=== PATIENT | female | born 1945 | race Caucasian/White ===

== ENCOUNTER → 2016-05-29 | Outpatient (CLI) | payer MEDICARE, MEDICAID ==
[~2016-05-29] MED LIST: /ESOM40CA; /WARF25TA; OMEGA 3; PERC5TAB8; TENO25TA; VENL37.5
--- NOTE | 2016-05-29 10:23 | REPMRS ---
Patient History The patient states she had a clinical breast exam in 05/2016. No known family history of cancer. Digital Woman Screen Mammo: May 29, 2016 - Exam #: [id number] Bilateral CC and MLO view(s) were taken. Technologist: Janet Sahu, Technologist Prior study comparison: April 12, 2015, digital woman screen mammo performed at [facility] to [facility]. July 19, 2013, digital woman screen mammo performed at [facility] to [facility]. FINDINGS: There are scattered fibroglandular densities. There has been no change in the appearance of the mammogram from the prior studies. There is a mild amount of residual fibroglandular tissue which is fairly symmetric. There is no interval development of dominant mass, architectural distortion, or clustered microcalcification suggestive of malignancy. ASSESSMENT: BI-RADS/ACR category 1 mammogram. Negative. Recommendation Routine screening mammogram in 1 year (for women over age 40). This mammogram was interpreted with the aid of an FDA-approved computer-aided dectection system. Electronically Signed By: Mendoza Webb MD 05/29/16 [id number]
== END ==
LOC: M WHC 09:08
PROVIDERS: ATTEND Nurse Practitioner Family
DX: Z12.31 Encounter for screening mammogram for malignant neoplasm of breast (principal); Z12.12 Encounter for screening for malignant neoplasm of rectum; Z01.411 Encounter for gynecological examination (general) (routine) with abnormal findings
CPT/HCPCS: 82270; G0101; G0202

== ENCOUNTER → 2016-09-18 | Outpatient (REF) | payer MEDICARE, MEDICAID ==
[2016-09-18 20:02] LABS: MEAN CORPUSCULAR VOLUME 90.9 fl (80.0-96.0); RED CELL DISTRIBUTION WIDTH 12.8 % (11.5-14.5); WHITE BLOOD COUNT 6.2 K/mm3 (4.0-10.0)
[2016-09-18 20:09] LABS: ALBUMIN 3.7 GM/DL (3.2-5.2); ALKALINE PHOSPHATASE 130 U/L (45-117); ALT/SGPT 24 U/L (12-78); ANION GAP 6 MEQ/L (8-16); AST/SGOT 18 U/L (15-37); BILIRUBIN,TOTAL 0.7 MG/DL (0.2-1.0); BLOOD UREA NITROGEN 15 MG/DL (7-18); CALCIUM LEVEL 8.8 MG/DL (8.8-10.2); CARBON DIOXIDE LEVEL 30 MEQ/L (21-32); CHLORIDE LEVEL 106 MEQ/L (98-107); CHOLESTEROL LEVEL 149 MG/DL (<200); CREATININE FOR GFR 0.93 MG/DL (0.55-1.02); FREE T4 0.96 NG/DL (0.76-1.46); GLOMERULAR FILTRATION RATE > 60.0 (>45); GLUCOSE, FASTING 92 MG/DL (80-110); POTASSIUM SERUM 4.1 MEQ/L (3.5-5.1); SODIUM LEVEL 142 MEQ/L (136-145); TOTAL PROTEIN 7.8 GM/DL (6.4-8.2); TRIGLYCERIDES LEVEL 104 MG/DL (<150)
== END ==
LOC: M SFHCADAM 16:38
PROVIDERS: ATTEND Family Medicine
DX: E53.8 Deficiency of other specified B group vitamins (principal); G30.8 Other Alzheimer's disease; E78.5 Hyperlipidemia, unspecified; E55.9 Vitamin D deficiency, unspecified; F02.81 Dementia in other diseases classified elsewhere, unspecified severity, with behavioral disturbance; R10.9 Unspecified abdominal pain; Z66 Do not resuscitate; Z78.9 Other specified health status; Z23 Encounter for immunization
CPT/HCPCS: 80053; 80061; 82306; 84439; 84443; 85027; 90732; 99497; G0009; G0463

== ENCOUNTER → 2017-10-07 | Outpatient (REF) | payer MEDICARE, MEDICAID ==
[2017-10-07 12:37] LABS: HEMATOCRIT 43.7 % (36.0-47.0); HEMOGLOBIN 14.4 g/dl (12.0-15.5); MEAN CORPUSCULAR HEMOGLOBIN 29.4 pg (27.0-33.0); MEAN CORPUSCULAR VOLUME 89.4 fl (80.0-96.0); PLATELET COUNT, AUTOMATED 225 10^3/uL (150-450); RED BLOOD COUNT 4.89 10^6/uL (4.00-5.40)
[2017-10-07 12:55] LABS: ALBUMIN 3.6 GM/DL (3.2-5.2); ALBUMIN/GLOBULIN RATIO 0.84 (1.00-1.93); ALKALINE PHOSPHATASE 137 U/L (45-117); ALT/SGPT 24 U/L (12-78); ANION GAP 8 MEQ/L (8-16); AST/SGOT 19 U/L (7-37); BILIRUBIN,TOTAL 0.7 MG/DL (0.2-1.0); BLOOD UREA NITROGEN 16 MG/DL (7-18); CALCIUM LEVEL 8.7 MG/DL (8.8-10.2); CARBON DIOXIDE LEVEL 29 MEQ/L (21-32); CHLORIDE LEVEL 108 MEQ/L (98-107); CHOLESTEROL LEVEL 148 MG/DL (<200); CHOLESTEROL RISK RATIO 2.312 (<5); GLOMERULAR FILTRATION RATE > 60.0 (>39); GLUCOSE, FASTING 84 MG/DL (70-100); HDL CHOLESTEROL 64 MG/DL (>40); LDL CHOLESTEROL 57.8 MG/DL (<100); NON-HDL-C 84 MG/DL; POTASSIUM SERUM 4.2 MEQ/L (3.5-5.1); SODIUM LEVEL 145 MEQ/L (136-145); TOTAL PROTEIN 7.9 GM/DL (6.4-8.2); TRIGLYCERIDES LEVEL 131 MG/DL (<150)
[2017-10-07 13:26] LABS: TOTAL 25(OH) VITAMIN D 32.7 NG/ML (30.0-100.0)
== END ==
LOC: M SFHCADAM 10:24
DX: R10.84 Generalized abdominal pain (principal); I11.9 Hypertensive heart disease without heart failure; E78.5 Hyperlipidemia, unspecified; E55.9 Vitamin D deficiency, unspecified; Z68.34 Body mass index [BMI] 34.0-34.9, adult
CPT/HCPCS: 80053

== ENCOUNTER → 2018-09-28 | Outpatient (REF) | payer MEDICARE, MEDICAID ==
[~2018-09-28] MED LIST changes: -/ESOM40CA; -/WARF25TA; +ASPI81TA26 PO; +ATOR1TAB21 PO; +COUM1TAB18; +DEPA250T2 PO; +DONETAB6 PO; +MIRT15TA3 PO; +NAME28CA PO; +NEXI1CAP3; +OXYB5TAB10 PO; +QUET5TAB PO; +SERT-155 PO
[2018-09-28 12:42] LABS: HEMATOCRIT 45.5 % (36.0-47.0); HEMOGLOBIN 14.7 g/dl (12.0-15.5); MEAN CORPUSCULAR HEMOGLOBIN 29.9 pg (27.0-33.0); MEAN CORPUSCULAR HGB CONC 32.3 g/dl (32.0-36.5); MEAN CORPUSCULAR VOLUME 92.7 fl (80.0-96.0); PLATELET COUNT, AUTOMATED 222 10^3/uL (150-450); RED BLOOD COUNT 4.91 10^6/uL (4.00-5.40); WHITE BLOOD COUNT 7.4 10^3/uL (4.0-10.0)
[2018-09-28 13:11] LABS: ALBUMIN 3.4 GM/DL (3.2-5.2); ALT/SGPT 21 U/L (12-78); BILIRUBIN,TOTAL 0.6 MG/DL (0.2-1.0); BLOOD UREA NITROGEN 14 MG/DL (7-18); CALCIUM LEVEL 8.5 MG/DL (8.8-10.2); CARBON DIOXIDE LEVEL 26 MEQ/L (21-32); CHLORIDE LEVEL 109 MEQ/L (98-107); CHOLESTEROL LEVEL 141 MG/DL (<200); CHOLESTEROL RISK RATIO 2.517 (<5); CREATININE FOR GFR 0.91 MG/DL (0.55-1.30); GLOMERULAR FILTRATION RATE > 60.0 (>39); GLUCOSE, FASTING 87 MG/DL (70-100); HDL CHOLESTEROL 56 MG/DL (>40); LDL CHOLESTEROL 62 MG/DL (<100); NON-HDL-C 85 MG/DL; SODIUM LEVEL 145 MEQ/L (136-145); TOTAL PROTEIN 7.6 GM/DL (6.4-8.2); TRIGLYCERIDES LEVEL 116 MG/DL (<150)
== END ==
LOC: M SFHCADAM 10:01
PROVIDERS: ATTEND Family Medicine
DX: G30.8 Other Alzheimer's disease (principal); I11.9 Hypertensive heart disease without heart failure; E78.5 Hyperlipidemia, unspecified
CPT/HCPCS: 80053; 80061; 85027; G0463

== ENCOUNTER → 2019-08-25 | Outpatient (REF) | payer MEDICARE, MEDICAID ==
[~2019-08-25] MED LIST changes: -SERT-155 PO; +SERT50TA29 PO
[2019-08-25 09:14] LABS: HEMATOCRIT 40.5 % (36.0-47.0); MEAN CORPUSCULAR HEMOGLOBIN 29.7 pg (27.0-33.0); MEAN CORPUSCULAR HGB CONC 32.1 g/dl (32.0-36.5); MEAN CORPUSCULAR VOLUME 92.7 fl (80.0-96.0); PLATELET COUNT, AUTOMATED 194 10^3/uL (150-450); RED BLOOD COUNT 4.37 10^6/uL (4.00-5.40); WHITE BLOOD COUNT 6.7 10^3/uL (4.0-10.0)
[2019-08-25 09:46] LABS: BLOOD UREA NITROGEN 15 MG/DL (7-18); CALCIUM LEVEL 8.1 MG/DL (8.8-10.2); CARBON DIOXIDE LEVEL 30 MEQ/L (21-32); CHLORIDE LEVEL 108 MEQ/L (98-107); CHOLESTEROL LEVEL 127 MG/DL (<200); CREATININE FOR GFR 0.75 MG/DL (0.55-1.30); GLOMERULAR FILTRATION RATE > 60.0 (>39); GLUCOSE, FASTING 76 MG/DL (70-100); HDL CHOLESTEROL 46 MG/DL (>40); LDL CHOLESTEROL 63 MG/DL (<100); NON-HDL-C 81 MG/DL; POTASSIUM SERUM 3.7 MEQ/L (3.5-5.1); SODIUM LEVEL 145 MEQ/L (136-145); TRIGLYCERIDES LEVEL 92 MG/DL (<150)
[2019-08-25 09:56] LABS: TOTAL 25(OH) VITAMIN D 28.3 NG/ML (30.0-100.0); VITAMIN B12 LEVEL 328 PG/ML (247-911)
== END ==
LOC: SKLAB6 08-22 07:00
PROVIDERS: ATTEND Family Medicine
DX: F03.90 Unspecified dementia, unspecified severity, without behavioral disturbance, psychotic disturbance, mood disturbance, and anxiety (principal); E53.8 Deficiency of other specified B group vitamins; E55.9 Vitamin D deficiency, unspecified; E78.5 Hyperlipidemia, unspecified; Z79.899 Other long term (current) drug therapy

== ENCOUNTER → 2019-11-01 | Outpatient (REF) | payer MEDICARE, MEDICAID ==
[~2019-11-01] MED LIST changes: +ACET1TAB55 PO; +D-101000 PO; +DIVA250T67 PO; +DULC10SU2 PR; +ENEMENE PR; +FURO20TA2 PO; +MILKSUS21 PO; +MULTCAP PO; +SENN-50 PO; +SERO1TAB3 PO; +TEMO0.0517 TOP; +TRIA1OI TOP; +VITMTA PO
[2020-01-28 07:54] LABS: BLOOD UREA NITROGEN 18 MG/DL (7-18); CALCIUM LEVEL 8.8 MG/DL (8.8-10.2); CARBON DIOXIDE LEVEL 30 MEQ/L (21-32); CHLORIDE LEVEL 105 MEQ/L (98-107); CREATININE FOR GFR 0.88 MG/DL (0.55-1.30); GLOMERULAR FILTRATION RATE > 60.0 (>39); GLUCOSE, FASTING 86 MG/DL (70-100); POTASSIUM SERUM 3.3 MEQ/L (3.5-5.1); SODIUM LEVEL 140 MEQ/L (136-145)
== END ==
LOC: SKLAB6 12:54
DX: R60.9 Edema, unspecified (principal)

== ENCOUNTER 2019-11-24 19:58 | Inpatient (IN) | payer MEDICARE, MEDICAID ==
[~2019-11-24] VITALS: Ht 157.5 cm; Wt 85.3 kg
[~2019-11-24 19:58] MED LIST changes: -ACET1TAB55 PO; -D-101000 PO; -DIVA250T67 PO; -DULC10SU2 PR; -ENEMENE PR; -FURO20TA2 PO; -MILKSUS21 PO; -MULTCAP PO; -SENN-50 PO; -SERO1TAB3 PO; -TEMO0.0517 TOP; -TRIA1OI TOP; -VITMTA PO
[2019-11-24] MEDS ORDERED: SENN-50 PO (20:48)
[2019-11-24] MEDS ORDERED: MILKSUS21 PO (20:48)
[2019-11-24] MEDS ORDERED: TEMO0.0517 TOP (20:48)
[2019-11-24] MEDS ORDERED: TRIA1OI TOP (20:48)
[2019-11-24] MEDS ORDERED: D-101000 PO (20:48)
[2019-11-24] MEDS ORDERED: FURO20TA2 PO (20:48)
[2019-11-24] MEDS ORDERED: DIVA250T67 PO (20:48)
[2019-11-24] MEDS ORDERED: DULC10SU2 PR (20:48)
[2019-11-24] MEDS ORDERED: ENEMENE PR (20:48)
[2019-11-24] MEDS ORDERED: ACET1TAB55 PO (20:48)
[2019-11-24] MEDS ORDERED: SERO1TAB3 PO (20:52)
[2019-11-24] MEDS ORDERED: MULTCAP PO (20:52)
[2019-11-24 20:55] LABS: HEMATOCRIT 26.3 % (36.0-47.0); HEMOGLOBIN 8.5 g/dl (12.0-15.5); MEAN CORPUSCULAR HEMOGLOBIN 29.9 pg (27.0-33.0); MEAN CORPUSCULAR HGB CONC 32.3 g/dl (32.0-36.5); MEAN CORPUSCULAR VOLUME 92.6 fl (80.0-96.0); PLATELET COUNT, AUTOMATED 298 10^3/uL (150-450); RED BLOOD COUNT 2.84 10^6/uL (4.00-5.40); WHITE BLOOD COUNT 21.2 10^3/uL (4.0-10.0)
[2019-11-24 21:00] LABS: CALCIUM LEVEL 8.2 MG/DL (8.8-10.2); CREATININE FOR GFR 1.2 MG/DL (0.55-1.30); POTASSIUM SERUM 4.2 MEQ/L (3.5-5.1)
[2019-11-24] MEDS ORDERED: VITMTA PO (21:01)
[2019-11-24 21:13] LABS: BASO % 0.2 % (0.0-1.0); EOS # 0.1 10^3/uL (0.0-0.5); EOS % 0.4 % (0.0-3.0); LYMPH # 1.4 10^3/uL (1.5-5.0); LYMPH % 6.5 % (24.0-44.0); MONO # 1.3 10^3/uL (0.0-0.8); MONO % 6.2 % (0.0-5.0); NEUTROPHILS # 17.9 10^3/uL (1.5-8.5); NEUTROPHILS % 85.3 % (36.0-66.0)
[2019-11-24 21:19] LABS: PLATELET ESTIMATE NORMAL (NORMAL)
[2019-11-24] MEDS: PANTOPRAZOLE 40MG VIAL (C9113 PER 1) IV SCH (22:00)
[2019-11-24] MEDS: QUEtiapine FUMARATE 50 MG TAB PO SCH (22:15)
[2019-11-24] MEDS ORDERED: MOM 30ML SUSPENSION UDC PO PRN (22:15)
[2019-11-24] MEDS: MEMANTINE 5MG TABLET (NAMENDA) PO SCH (22:15)
[2019-11-24] MEDS ORDERED: ASPIRIN 81 MG ENTERIC TAB PO SCH (22:15)
[2019-11-24] MEDS ORDERED: TRIAMCINOLONE ACET 0.1% OINTMENT 15 GM TOP PRN (22:15)
[2019-11-24] MEDS: SENOKOT S TAB PO SCH (22:15)
[2019-11-24] MEDS ORDERED: FLEET ENEMA PR PRN (22:15)
[2019-11-24] MEDS ORDERED: BISACODYL 10 MG SUPP PR PRN (22:15)
[2019-11-24] MEDS: VITAMIN D 1,000 INTERNATIONAL UNITS TABLET PO SCH (22:15)
[2019-11-24] MEDS: DIVALPROEX 250 MG TAB PO SCH (22:15)
[2019-11-24] MEDS: MULTIVITAMINS/MINERALS THERAP 1 TAB PO SCH (22:15)
[2019-11-24] MEDS ORDERED: ACETAMINOPHEN TAB 650MG DOSE (2X325MG) PO PRN (22:15)
[2019-11-24] MEDS: CLOBETASOL PROP 0.05% OINT 30 GM TOP SCH (22:15)
[2019-11-24] MEDS: SERTRALINE HCL 50 MG TAB PO SCH (22:15)
[2019-11-24 22:16] LABS: PERCENT SATURATION 17.5 % (13.2-45.0)
[2019-11-24] MEDS: NS 1,000 ML IV SCH (22:39)
--- NOTE | 2019-11-24 22:59 | REPVR ---
PROCEDURE INFORMATION: Exam: XR Chest, 1 View Exam date and time: 11/24/2019 10:06 PM Age: 74 years old Clinical indication: Other: Coughing in PT w dementia TECHNIQUE: Imaging protocol: XR of the chest Views: 1 view. COMPARISON: CR RIBS-UNI W-O PA CHEST 07/09/2015 7:23 PM FINDINGS: Lungs: Increased interstitial markings demonstrated bilaterally. No segmental or lobar infiltrates. Pleural space: Unremarkable. No pleural effusion. No pneumothorax. Heart/Mediastinum: Unremarkable. No cardiomegaly. Bones/joints: The spine demonstrates moderate degenerative changes. Osteoporosis. IMPRESSION: No acute findings. Electronically signed by: Cliff Albrecht On 11/24/2019 22:59:39 PM
[2019-11-24 23:17] VITALS: BP 114/77
[2019-11-25] VITALS (11 sets, daily range): BP systolic 107–141; BP diastolic 56–83; O2SAT 96
--- NOTE | 2019-11-25 02:09 | HPEPDOC ---
[facility] Medical History & Physical Date of Admission Nov 24, 2019 Date of Service: Nov 24, 2019 Primary Care Physician: Mane Cyr M.D. Attending Physician: KENIA ALFARO MD History and Physical TIME OF SERVICE: 1139pm CHIEF COMPLAINT: sent from [place] HISTORY OF PRESENT ILLNESS: The majority of the history was obtained from & the patients daughter bc the patient has dementia. This 74 yr old F was sent to the ER from her NH because she had an episode of choking requiring the Heimlich maneuver that was followed by hematemesis. The patients daughter was at the bedside and has not seen her mother since June because of visiting restrictions due to the pandemic; she added that her mother seemed more confused than she was when she last saw her and that she was told that that the patient had melena recently. 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 HOME MEDICATIONS: Please see below. PHYSICAL EXAM Vital Signs Date Time Temp Pulse Resp B/P (MAP) Pulse Ox O2 Delivery O2 Flow Rate FiO2 11/24/19 20:07 104/55 (71) 11/24/19 20:13 118 93 11/24/19 20:14 96.7 16 Room Air GENERAL APPEARANCE: obese/ well developed CARDIOVASCULAR: RRR/NMRG / radial pulse intact LUNGS: CTAB on RA ABDOMEN: distended/ grimaces w palpitation of left lower quadrant MUSCULOSKELETAL: NCAT INTEGUMENT: mild generalized pallor NEUROLOGICAL: unable to assess bc of poor cooperation PSYCHIATRIC: intermittently asleep then suddenly gets up to adjust her blanket, easily distracted LABORATORY DATA: 11/24/19 20:32 Immature Granulocyte % (Auto) 1.4, Neutrophils (%) (Auto) 85.3H, Lymphocytes (%) (Auto) 6.5L, Monocytes (%) (Auto) 6.2H, Eosinophils (%) (Auto) 0.4, Basophils (%) (Auto) 0.2, Neutrophils # (Auto) 17.9H, Lymphocytes # (Auto) 1.4L, Monocytes # (Auto) 1.3H, Eosinophils # (Auto) 0.1, Basophils # (Auto) 0.0, Reticulocyte # (auto) 108.9H, Immature Granulocyte # (Auto) 0.3H, Nucleated Red Blood Cells % (auto) 0.0, Platelet Estimate NORMAL, Anion Gap 11, Glomerular Filtration Rate 47.0, Calcium Level 8.2L, IMAGING: Chest xray osteoporosisIMPRESSION: No acute findings. MICROBIOLOGY: Please see below. ASSESSMENT: is a 74 yr old w a hx of advanced multifactorial dementia, GERD gastritis and duodenitis who was transferred from her NH for evaluation after chocking having hematemesis and melena; she appears to be delirious and will be admitted for evaluation of encephalopathy, SIRS, acute anemia. PLAN: 1 Encephalopathy /Delirium Possibly 2/2 aspiration PNA vs UTI or acute anemia ? She has underlying dementia but according to her daughter is currently more confused than her baseline Plan: admit to medical floor / f/u work up for infection / fall precautions 2 SIRS Possibly 2/2 UTI vs GI infection SIRs criteria include leukocytosis and tachycardia XR chest unremarkable Plan: f/u blood cx, lactic acid and UA 3 Acute blood loss anemia Possibly 2/2 UGIB Hg dropped from 13 in August to 8.5 today She has a hx of duodenitis and gastritis There were reports of hematemesis and melena but no witnessed events in the hospital. 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 Plan: memantine / quetiapine likely for behavioral disturbance 6 Chronic HTN BP is currently low Plan: hold furosemide/ IVF 7 Lichen sclerosis Plan: clobetasol 8 Osteoporosis Plan: f/u w PCP for DEXA and to start anti-resorptive therapy / start Ca w vitamin D prior to discharge DVT px w SCDs bc of acute anemia Dispo: home after more than 2 midnights stay Home Medications Scheduled Aspirin (Aspirin EC) 81 Mg Tab, 81 MG PO QHS Cholecalciferol (Vitamin D3) (Vitamin D3) 25 Mcg Capsule, 1,000 UNITS PO QHS Clobetasol Propionate (Temovate) 15 Gm Oint...g., 1 DOSE TOP QHS APPLY TO VULVA Divalproex Sodium (Divalproex Sodium) 250 Mg Tablet.dr, 250 MG PO QHS Furosemide (Furosemide) 20 Mg Tablet, 20 MG PO QAM Memantine HCl (Namenda Xr) 28 Mg Cap, 28 CAP PO QHS Multivitamins (Thera M Plus Tablet) 1 Each Tablet, 1 TAB PO QHS Quetiapine Fumarate (Quetiapine Fumarate) 50 Mg Tab, 50 MG PO QHS Quetiapine Fumarate (Seroquel) 25 Mg Tablet, 25 MG PO QAM Sennosides/Docusate Sodium (Senna Plus Tablet) 1 Each Tablet, 1 TAB PO QHS Sertraline HCl (Sertraline HCl) 50 Mg Tab, 50 MG PO QHS Scheduled PRN Acetaminophen (Acetaminophen) 325 Mg Tablet, 650 MG PO Q4H PRN for PAIN / FEVER Bisacodyl (Dulcolax) 10 Mg Supp.rect, 10 MG DC DAILY PRN for CONSTIPATION Magnesium Hydroxide (Milk of Magnesia) 400 Mg/5 Ml Oral.susp, 30 ML PO DAILY PRN for CONSTIPATION Sodium Phosphate,Jeff [place]-Dibasic (Enema) 133 Ml Enema, 1 ANTONIO DC DAILY PRN for CONSTIPATION Triamcinolone Acet (Triamcinolone Acetonide 0.1% Oint) 15 Gm Oint...g., 1 DOSE TOP BID PRN for dermititis Allergies Coded Allergies: Quinolones (Verified Allergy, Unknown, 11/24/19) hydrocodone (Verified Allergy, Unknown, 11/24/19) levofloxacin (Verified Allergy, Unknown, 11/24/19) oxycodone (Verified Allergy, Unknown, 11/24/19) A-FIB/CHADSVASC A-FIB History Current/History of A-Fib/PAF?: No Current PO Anticoag Therapy: No KENIA ALFARO MD Nov 25, 2019 02:09
[2019-11-25] MEDS: NS 1,000 ML IV SCH ×2 (06:17→13:38)
[2019-11-25 07:28] LABS: HEMATOCRIT 23.5 % (36.0-47.0); HEMOGLOBIN 7.6 g/dl (12.0-15.5); MEAN CORPUSCULAR HEMOGLOBIN 29.8 pg (27.0-33.0); MEAN CORPUSCULAR HGB CONC 32.3 g/dl (32.0-36.5); MEAN CORPUSCULAR VOLUME 92.2 fl (80.0-96.0); PLATELET COUNT, AUTOMATED 284 10^3/uL (150-450); RED BLOOD COUNT 2.55 10^6/uL (4.00-5.40); WHITE BLOOD COUNT 22.6 10^3/uL (4.0-10.0)
[2019-11-25 07:50] LABS: CALCIUM LEVEL 7.7 MG/DL (8.8-10.2); CREATININE FOR GFR 0.99 MG/DL (0.55-1.30); GLOMERULAR FILTRATION RATE 58.7 (>39)
[2019-11-25] MEDS: PANTOPRAZOLE 40MG VIAL (C9113 PER 1) IV SCH ×2 (08:42→21:13)
[2019-11-25] MEDS ORDERED: FUROSEMIDE 20 MG TAB PO SCH (09:00)
[2019-11-25] MEDS: MEMANTINE 5MG TABLET (NAMENDA) PO SCH ×2 (09:00→19:59)
[2019-11-25] MEDS: QUEtiapine FUMARATE 25 MG TAB PO SCH (09:00)
[2019-11-25] MEDS: PIPERACILLIN/TAZOBACTAM SOD 2.25 GM in D5W MINI-BAG PLUS 50 ML IV SCH ×2 (11:11→21:13)
[2019-11-25] MEDS: GASTROGRAFIN SOLUTION 30ML PO SCH ×2 (11:30→12:00)
[2019-11-25] MEDS ORDERED: ISOVUE-370 76% 100ML VIAL As Ordered ONE (11:56)
[2019-11-25] MEDS: VANCOMYCIN HCL 750 MG, VIAL MATE ADAPTER 1 EACH in D5W 250 ML IV SCH (13:34)
[2019-11-25] MEDS ORDERED: VANCOMYCIN HCL 750 MG, VIAL MATE ADAPTER 1 EACH in D5W 250 ML IV ONE (14:00)
--- NOTE | 2019-11-25 14:55 | REPVR ---
PROCEDURE INFORMATION: Exam: CT Abdomen And Pelvis With Contrast Exam date and time: 11/25/2019 2:12 PM Age: 74 years old Clinical indication: Abdominal pain; Additional info: Sepsis, possible addominal source TECHNIQUE: Imaging protocol: Computed tomography of the abdomen and pelvis with intravenous contrast. Radiation optimization: All CT scans at this facility use at least one of these dose optimization techniques: automated exposure control; mA and/or kV adjustment per patient size (includes targeted exams where dose is matched to clinical indication); or iterative reconstruction. Contrast material: ISOVUE 370; Contrast volume: 100 ml; Contrast route: INTRAVENOUS (IV); COMPARISON: No relevant prior studies available. FINDINGS: Lungs: There may be mild pneumonitis in the lungs versus artifact from motion. Mediastinal space: There is a small hiatal hernia. Liver: Normal. No mass. Gallbladder and bile ducts: Normal. No calcified stones. No ductal dilation. Pancreas: Normal. No ductal dilation. Spleen: Normal. No splenomegaly. Adrenals: Normal. No mass. Kidneys and ureters: Hypodensities are noted in both kidneys questionably cysts measuring up to 40 x 53 mm but all be evaluated due to artifact. Stomach and bowel: There is possible gastric antral wall thickening which could be a sign of a gastritis or ulcer disease. There is a moderate amount of stool in the rectum and distal sigmoid colon. There is scattered colonic diverticula. Appendix: No evidence of appendicitis. Intraperitoneal space: There may be mild inflammatory changes in the mesentery with small lymph nodes questionably mild panniculitis.. No free air. No significant fluid collection. Vasculature: Unremarkable. No abdominal aortic aneurysm. Lymph nodes: Unremarkable. No enlarged lymph nodes. Bladder: There is a Rogel catheter and air in the urinary bladder. Reproductive: Unremarkable as visualized. Bones/joints: Diffuse arthritic changes seen in the spine with a superior endplate 40% T12 compression fracture. Soft tissues: Unremarkable. Other findings: There is diffuse breathing motion limiting evaluation. The patient's arms by her side limiting evaluation. IMPRESSION: 1. Very limited evaluation due to artifact. 2. Renal hypodensities which cannot be determined as the Bosniak classification due to artifact. 3. Gastric antral wall thickening? 4. Retained feces. 5. T12 compression fracture of unknown age. 6. Possible panniculitis. 7. Possible pneumonitis. Electronically signed by: Yong Carvalho On 11/25/2019 14:55:18 PM
--- NOTE | 2019-11-25 15:10 | REPVR ---
PROCEDURE INFORMATION: Exam: CT Angiography Chest With Contrast Exam date and time: 11/25/2019 2:12 PM Age: 74 years old Clinical indication: Chest pain; Additional info: Sepsis - pulmonary source TECHNIQUE: Imaging protocol: Computed tomographic angiography of the chest with intravenous contrast. 3D rendering (Not supervised by radiologist): MIP and/or 3D reconstructed images were created by the technologist. Radiation optimization: All CT scans at this facility use at least one of these dose optimization techniques: automated exposure control; mA and/or kV adjustment per patient size (includes targeted exams where dose is matched to clinical indication); or iterative reconstruction. Contrast material: ISOVUE 370; Contrast volume: 100 ml; Contrast route: INTRAVENOUS (IV); COMPARISON: CR PORTABLE CHEST X-RAY 11/24/2019 10:41 PM FINDINGS: Pulmonary arteries: Normal. No pulmonary emboli. Aorta: Unremarkable. No aortic aneurysm. No aortic dissection. Lungs: Bilateral ground-glass appearance seen to the lungs bilaterally. This could represent a mild pneumonitis. Pleural space: Unremarkable. No pneumothorax. No pleural effusion. Heart: Unremarkable. No cardiomegaly. No pericardial effusion. Lymph nodes: Unremarkable. No enlarged lymph nodes. Bones/joints: There is a superior endplate compression fracture T12 approximately 40%. Soft tissues: Unremarkable. Other findings: The abdomen pelvis were discussed in a separate dictation. There is artifact from the patient's arms by her side. There is breathing motion noted. IMPRESSION: The limits of this examination given both motion and artifact from the patient's arm there is no obvious evidence of pulmonary emboli. Possible pneumonitis, mild if real. Also be chronic interstitial changes. Electronically signed by: Yong Carvalho On 11/25/2019 15:10:13 PM
[2019-11-25] MEDS ORDERED: NS 1,000 ML IV SCH (15:25)
[2019-11-25] MEDS: SENOKOT S TAB PO SCH (19:59)
[2019-11-25] MEDS: DIVALPROEX 250 MG TAB PO SCH (19:59)
[2019-11-25] MEDS: MULTIVITAMINS/MINERALS THERAP 1 TAB PO SCH (20:00)
[2019-11-25] MEDS: SERTRALINE HCL 50 MG TAB PO SCH (20:00)
[2019-11-25] MEDS: QUEtiapine FUMARATE 50 MG TAB PO SCH (20:00)
[2019-11-25] MEDS: VITAMIN D 1,000 INTERNATIONAL UNITS TABLET PO SCH (20:00)
[2019-11-26] VITALS (7 sets, daily range): BP systolic 118–124; BP diastolic 56–65; O2SAT 96–97
[2019-11-26] MEDS: CLOBETASOL PROP 0.05% OINT 30 GM TOP SCH ×2 (00:04→19:50)
[2019-11-26] MEDS: VANCOMYCIN HCL 750 MG, VIAL MATE ADAPTER 1 EACH in D5W 250 ML IV SCH ×2 (00:50→12:50)
[2019-11-26] MEDS: PIPERACILLIN/TAZOBACTAM SOD 2.25 GM in D5W MINI-BAG PLUS 50 ML IV SCH ×3 (02:50→18:39)
[2019-11-26] MEDS: NS 1,000 ML IV SCH ×5 (04:37→19:51)
--- NOTE | 2019-11-26 07:08 | CR ---
DATE OF CONSULTATION: 11/25/2019 REASON FOR CONSULTATION: Anemia. HISTORY OF PRESENT ILLNESS: Patient is a 74-year-old female with severe dementia. She was transferred over to the hospital from the group home due to an episode of choking that required the Heimlich maneuver. Immediately after the Heimlich, she had some hematemesis. They also mentioned that she has had some melena recently on top of this. She was brought into the Emergency Room. She is very difficult to get any history from, and she was admitted for anemia, mental status changes and SIRS. History is unobtainable for her. When I saw her this morning, she is unable to arouse, even to pain. PAST MEDICAL AND SURGICAL HISTORY: Obtained from the chart. She has severe vascular and Alzheimers dementia, hypertension, GERD, gastritis, Lichen sclerosis, anxiety, dyslipidemia, osteoporosis, hemorrhoids, diverticulosis, right knee replacement, hysterectomy with a left oophorectomy, three C-sections. REVIEW OF SYSTEMS: Unable to obtain. FAMILY HISTORY: Noncontributory. SOCIAL HISTORY: No drug, alcohol, tobacco usage. ALLERGIES: Quinolones, Hydrocodone, Levaquin, Oxycodone. MEDICATIONS: Please see med rec. PHYSICAL EXAMINATION: VITAL SIGNS: Stable. Afebrile. Slightly tachycardic. Pulse 119. GENERAL: There is no acute distress. She is unarousable. HEART: S1, S2, tachy. LUNGS: Clear to auscultation bilaterally. ABDOMEN: Soft. Nontender, non-distended. No rebounding, guarding or rigidity. No ventral hernias. EXTREMITIES: No cyanosis, clubbing or edema. LABORATORY DATA: White count 22.6, hemoglobin 7.6, platelets 284,000. Potassium 4, creatinine 0.99. Lactic acid 2.6 and it is up to 3.5 this morning. Calcium 7.7. IMAGING STUDIES: Chest x-ray was normal last evening. ASSESSMENT AND PLAN: Patient is an 74-year-old female with acute anemia, encephalopathy, leukocytosis, with recent episode of choking requiring the Heimlich, and subsequently developed hematemesis after that. At this point, her hemoglobin is low but it is stable. There are no signs of any acute bleeding. There is concern though for her lactic acidosis and leukocytosis. I recommend to start her on antibiotics. Obtain her UA. Will place a Rogel catheter to get the UA completed. Also recommend CT of chest, abdomen and pelvis. Make sure that she does not develop any perforation from the Heimlich maneuver. This case was discussed with the primary as well as nurse. ZELALEM
[2019-11-26] MEDS: PANTOPRAZOLE 40MG VIAL (C9113 PER 1) IV SCH ×2 (08:25→19:50)
[2019-11-26] MEDS: MEMANTINE 5MG TABLET (NAMENDA) PO SCH ×2 (09:00→19:36)
[2019-11-26] MEDS: QUEtiapine FUMARATE 25 MG TAB PO SCH (09:00)
[2019-11-26 10:12] LABS: BASO % 0.3 % (0.0-1.0); EOS # 0.3 10^3/uL (0.0-0.5); HEMATOCRIT 24.9 % (36.0-47.0); HEMOGLOBIN 8.2 g/dl (12.0-15.5); LYMPH # 1.6 10^3/uL (1.5-5.0); LYMPH % 11.3 % (24.0-44.0); MEAN CORPUSCULAR HEMOGLOBIN 30.1 pg (27.0-33.0); MEAN CORPUSCULAR HGB CONC 32.9 g/dl (32.0-36.5); MEAN CORPUSCULAR VOLUME 91.5 fl (80.0-96.0); MONO # 1.2 10^3/uL (0.0-0.8); MONO % 8.5 % (0.0-5.0); NEUTROPHILS % 77.3 % (36.0-66.0); PLATELET COUNT, AUTOMATED 206 10^3/uL (150-450); RED BLOOD COUNT 2.72 10^6/uL (4.00-5.40); WHITE BLOOD COUNT 14.2 10^3/uL (4.0-10.0)
[2019-11-26 11:00] LABS: ALBUMIN 2.1 GM/DL (3.2-5.2); ALT/SGPT 24 U/L (12-78); BILIRUBIN,DIRECT 0.3 MG/DL (0.0-0.2); BILIRUBIN,TOTAL 0.7 MG/DL (0.2-1.0); BLOOD UREA NITROGEN 17 MG/DL (7-18); CALCIUM LEVEL 7.6 MG/DL (8.8-10.2); CARBON DIOXIDE LEVEL 25 MEQ/L (21-32); CHLORIDE LEVEL 116 MEQ/L (98-107); CREATININE FOR GFR 0.64 MG/DL (0.55-1.30); GLOMERULAR FILTRATION RATE > 60.0 (>39); GLUCOSE, FASTING 87 MG/DL (70-100); LDH LACTATE DEHYDROGENASE 172 U/L (84-246); POTASSIUM SERUM 3.9 MEQ/L (3.5-5.1); SODIUM LEVEL 147 MEQ/L (136-145)
[2019-11-26] MEDS: DIVALPROEX 250 MG TAB PO SCH (19:35)
[2019-11-26] MEDS: MULTIVITAMINS/MINERALS THERAP 1 TAB PO SCH (19:36)
[2019-11-26] MEDS: QUEtiapine FUMARATE 50 MG TAB PO SCH (19:36)
[2019-11-26] MEDS: SENOKOT S TAB PO SCH (19:36)
[2019-11-26] MEDS: SERTRALINE HCL 50 MG TAB PO SCH (19:36)
[2019-11-26] MEDS: VITAMIN D 1,000 INTERNATIONAL UNITS TABLET PO SCH (19:36)
[2019-11-27] MEDS ORDERED: VANCOMYCIN HCL 1,000 MG, VIAL MATE ADAPTER 1 EACH in D5W 250 ML IV SCH ×3
[2019-11-27] MEDS: PIPERACILLIN/TAZOBACTAM SOD 2.25 GM in D5W MINI-BAG PLUS 50 ML IV SCH (03:40)
[2019-11-27] MEDS: NS 1,000 ML IV SCH ×2 (05:25→10:54)
[2019-11-27 06:00] VITALS: BP 124/63
[2019-11-27] MEDS: MEMANTINE 5MG TABLET (NAMENDA) PO SCH ×2 (09:00→21:00)
[2019-11-27] MEDS: QUEtiapine FUMARATE 25 MG TAB PO SCH (09:00)
[2019-11-27] MEDS ORDERED: PIPERACILLIN/TAZOBACTAM SOD 2.25 GM in D5W MINI-BAG PLUS 50 ML IV SCH (10:00)
[2019-11-27] MEDS ORDERED: AMPICILLIN SOD/SULBACTAM SOD 1.5 GM in D5W MINI-BAG PLUS 50 ML IV SCH (10:00)
[2019-11-27] MEDS ORDERED: GLUCOSE 4GM CHEW TABLET PO PRN (10:45)
[2019-11-27] MEDS ORDERED: GLUCAGON INJ 1MG VIAL SC PRN (10:45)
[2019-11-27] MEDS ORDERED: DEXTROSE 50% 50 ML SYRINGE IV PRN (10:45)
[2019-11-27] MEDS: PIPERACILLIN/TAZOBACTAM SOD 3.375 GM in D5W MINI-BAG PLUS 50 ML IV SCH ×3 (10:54→22:39)
[2019-11-27 14:00] VITALS: BP 140/73
[2019-11-27 15:09] LABS: HEMATOCRIT 26.7 % (36.0-47.0); HEMOGLOBIN 8.8 g/dl (12.0-15.5); MEAN CORPUSCULAR HEMOGLOBIN 30.1 pg (27.0-33.0); MEAN CORPUSCULAR VOLUME 91.4 fl (80.0-96.0); PLATELET COUNT, AUTOMATED 237 10^3/uL (150-450); RED BLOOD COUNT 2.92 10^6/uL (4.00-5.40); WHITE BLOOD COUNT 13.1 10^3/uL (4.0-10.0)
--- NOTE | 2019-11-27 16:00 | IPN ---
DATE: 11/25/2019 HISTORY OF PRESENT ILLNESS: The patient had been admitted following a Heimlich maneuver for choking on food with development of some reported hematemesis. Her hematocrit dropped somewhat after admission, and she did receive 2 units of packed red blood cells on 11/24. She had a CT scan yesterday that apparently showed no evidence of abdominal injury. PHYSICAL EXAMINATION: VITAL SIGNS: Vital signs show that she has been afebrile since yesterday evening when she was 100.3 at her max. Her pulse is in the 80s and mid 90s and her blood pressure is good. Intake and output show that yesterday she had 3,200 in with 900 recorded out. She does have a Rogel catheter in place and has a large volume of light yellow urine in the bag currently. GENERAL APPEARANCE: The patient appears to be dozing when I entered. She rouses to voice and light touch. Her speech is slightly garbled but she is clearly trying to speak words. I do not believe that she is oriented. HEART: Regular rhythm. ABDOMEN: Obese but soft and without any significant tenderness. LABORATORY STUDIES: White count of 14 with a hemoglobin of 8, hematocrit 25 and a platelet count of 206,000. Her differential shows 77% neutrophils, 11 lymphocytes and 8 monocytes. Chemistries today show a sodium of 147, potassium 3.9, chloride 116, CO2 of 25, BUN of 17, creatinine 0.6 and a glucose of 87. Liver function tests are normal. IMPRESSION: Patient appears stable at this point with no evident abdominal tenderness. Her urine output is brisk. She does not have any additional bowel movements recorded to suggest any ongoing bleeding. RECOMMENDATIONS: 1. If the patient is able, I would recommend putting her on a diet, perhaps starting with liquids or whatever her swallowing will accept. 2. She is on antibiotics, though the cause for these is unclear to me as apparently no infectious source has been identified. 3. I see no need for any surgical intervention or follow up. ZELALEM
[2019-11-27] MEDS: SENOKOT S TAB PO SCH (21:00)
[2019-11-27] MEDS: VITAMIN D 1,000 INTERNATIONAL UNITS TABLET PO SCH (21:00)
[2019-11-27] MEDS: DIVALPROEX 250 MG TAB PO SCH (21:00)
[2019-11-27] MEDS: MULTIVITAMINS/MINERALS THERAP 1 TAB PO SCH (21:00)
[2019-11-27] MEDS: QUEtiapine FUMARATE 50 MG TAB PO SCH (21:00)
[2019-11-27] MEDS: SERTRALINE HCL 50 MG TAB PO SCH (21:00)
[2019-11-27 22:00] VITALS: BP 149/81
[2019-11-27] MEDS: CLOBETASOL PROP 0.05% OINT 30 GM TOP SCH (22:40)
[2019-11-28] VITALS (15 sets, daily range): BP systolic 100–125; BP diastolic 50–81; O2SAT 97
--- NOTE | 2019-11-28 01:06 | IPNPDOC ---
Text Note Date of Service The patient was seen on 11/26/19 and 11/27/19. NOTE SUBJECTIVE: stable overnight. mentation - not consistently appropriate OBJECTIVE: FOCUSED EXAMINATION: General: Pleasant, NAD HEENT: NC, AT. EOMI, no scleral icterus. Neck: no masses CV: RRR, Normal S1 and S2. No murmurs, gallops, or rubs. Resp: CTAB with full breath sounds. No wheezes, crackles, or rhonchi. No dullness to percussion. Abdomen: Bowel sounds present. Soft, NT, ND. Extremities: No swelling or edema. VITAL SIGNS: Please see below. ASSESSMENT and PLAN: Nilda is a 74 yr old w a hx of advanced multifactorial dementia, GERD gastritis and duodenitis who was transferred from her NH for evaluation after c hocking having hematemesis and melena; she appears to be delirious and will be admitted for evaluation of encephalopathy, SIRS, acute anemia. PLAN: 1 Encephalopathy /Delirium infectiois v. blood loss CTabdomen: paniculis? - no surgical plans -waking and waning 2 SIRS Possibly 2/2 UTI vs GI infection reviewed uti micro - will cover with zosyn Iv for GI and source. 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 VS,Fishbone, I+O VS, Fishbone, I+O Laboratory Tests 11/27/19 14:55 Vital Signs Date Time Temp Pulse Resp B/P (MAP) Pulse Ox O2 Delivery O2 Flow Rate FiO2 11/27/19 22:00 98.6 100 20 149/81 (103) 95 Room Air I&O- Last 24 Hours up to 6 AM 11/27/19 06:00 Intake Total 5445 ml Output Total 2950 ml Balance 2495 ml JJ YEE DO Nov 27, 2019 23:54
[2019-11-28] MEDS: PIPERACILLIN/TAZOBACTAM SOD 3.375 GM in D5W MINI-BAG PLUS 50 ML IV SCH ×4 (04:30→23:54)
[2019-11-28] MEDS: MEMANTINE 5MG TABLET (NAMENDA) PO SCH ×2 (08:06→20:43)
[2019-11-28] MEDS: QUEtiapine FUMARATE 25 MG TAB PO SCH (08:06)
[2019-11-28 10:35] LABS: MEAN CORPUSCULAR HEMOGLOBIN 30.4 pg (27.0-33.0); MEAN CORPUSCULAR HGB CONC 32.4 g/dl (32.0-36.5); PLATELET COUNT, AUTOMATED 286 10^3/uL (150-450); RED BLOOD COUNT 2.17 10^6/uL (4.00-5.40); WHITE BLOOD COUNT 16.7 10^3/uL (4.0-10.0)
[2019-11-28] MEDS: PANTOPRAZOLE 40MG VIAL (C9113 PER 1) IV SCH ×2 (10:49→20:54)
[2019-11-28 10:52] LABS: BLOOD UREA NITROGEN 22 MG/DL (7-18); CALCIUM LEVEL 7.7 MG/DL (8.8-10.2); CARBON DIOXIDE LEVEL 21 MEQ/L (21-32); CHLORIDE LEVEL 114 MEQ/L (98-107); CREATININE FOR GFR 0.93 MG/DL (0.55-1.30); GLOMERULAR FILTRATION RATE > 60.0 (>39); GLUCOSE, FASTING 161 MG/DL (70-100); POTASSIUM SERUM 3.2 MEQ/L (3.5-5.1); SODIUM LEVEL 144 MEQ/L (136-145)
--- NOTE | 2019-11-28 10:55 | REPVR ---
PROCEDURE INFORMATION: Exam: XR Abdomen, 1 View Exam date and time: 11/28/2019 9:35 AM Age: 74 years old Clinical indication: Other: Suspect gi bleed TECHNIQUE: Imaging protocol: XR of the abdomen. Views: Frontal portable supine view of the abdomen. 1 View. COMPARISON: CT ABD/PEL W/IV CONTRAST ONLY 11/25/2019 2:24 PM FINDINGS: Gastrointestinal tract: Unremarkable. No bowel dilation. Bones/joints: There is degenerative disc disease at multiple lumbar spine disk levels. IMPRESSION: No acute abdominal or pelvic abnormality identified. Electronically signed by: Shaun Jarrett On 11/28/2019 10:55:25 AM
[2019-11-28 11:10] LABS: HEMOGLOBIN 6.6 g/dl (12.0-15.5)
[2019-11-28 11:12] LABS: HEMATOCRIT 20.4 % (36.0-47.0)
[2019-11-28] MEDS: NS 1,000 ML IV SCH (14:02)
--- NOTE | 2019-11-28 16:15 | IPNPDOC ---
Text Note Date of Service The patient was seen on 11/28/19. NOTE SUBJECTIVE: This morning the nurses informed me that she was much more pale and diaphoretic, and tachycardic. She continued to maintain blood pressure. She also had copious amounts of black stool suspected to be blood. She does not respond to questioning. ROS unobtainable. OBJECTIVE: PHYSICAL EXAMINATION: GENERAL APPEARANCE: obese/ well developed CARDIOVASCULAR: RRR/NMRG / radial pulse intact LUNGS: CTAB ABDOMEN: grimaces w palpitation of left upper quadrant. Hyperactive bowel sounds. INTEGUMENT: pallor noted, I didn't see her yesterday, but the nurses report she is more pale today than before NEUROLOGICAL: unable to assess ASSESSMENT and PLAN: Ms Melgar is a 74 yr old w a hx of advanced multifactorial dementia, GERD gastritis and duodenitis who was transferred from her group home for evaluation after choking and receiving the Heimlich maneuver. She then had an episode of hematemesis. Apparently she also had melena perhaps prior to this episode as well. PLAN: 1 Encephalopathy /Delirium She has a history of dementia, but is usually awake and participatory in the residential. Her current status of being nonverbal is new. 2 SIRS Possibly 2/2 UTI vs GI infection Continue with zosyn Iv for GI and source, this will also cover any possibili ty of aspiration PNA, although this does not appear to be the case at this time. Repeat abdomen KUB and Chest xray ordered 3 Acute blood loss anemia - H&H is down to 6.6 this morning. 2 units ordered. Will transfer to [facility] for remote tele as tachycardia seems to be her first sign of blood loss. 4 Choking Suspect this due to worsening of her dementia Plan: keep HOBE to 30 degrees, aspiration precautions, continuous pulse ox, NPO w IVF Still pending swallow eval. Pt family informs me that the patients does not/did not want to have a GI tube placed. 5 Stage 6 or 7 Alzheimers and Vascular Dementia -resume home meds after swallow assesment 6 Chronic HTN home meds when able to tolerate oral diet 7 Lichen sclerosis Plan: clobetasol DVT px w SCDs bc of acute blood loss anemia. DISPO: I had a conversation with 2 of the patient's daughter. The patient definitely had another GI bleed again this morning. 2 units ordered, will follow H&H Q6. KUB shows no peritoneal air, and bleed appears to be relatively slow. IV protonix BID ordered, but holding carafate (and all PO meds) until speech therapy can evaluate swallowing. The patient has not eaten since 11/24/19, if she is not able to eat, or continues to bleed (meaning she should reamin NPO) then consideration should be made for temporary IV nutrition tomorrow. Per the daughter, it apparently was the patient's wishes that she not have a PEG tube placed. I mentioned to the daughters that if the bleeding does not stop, or she has multiple recurrences, then consideration should be made for [employer]. The family will see how things go over the next few days and discuss. VS,Abimbola, I+O VS, Abimbola, I+O Laboratory Tests 11/28/19 09:58 Vital Signs Date Time Temp Pulse Resp B/P (MAP) Pulse Ox O2 Delivery O2 Flow Rate FiO2 11/28/19 15:15 96.5 115 25 112/71 97 Room Air I&O- Last 24 Hours up to 6 AM 11/28/19 06:00 Intake Total 0 ml Output Total 1450 ml Balance -1450 ml ALEXX MAE DO Nov 28, 2019 16:15
[2019-11-28] MEDS: SENOKOT S TAB PO SCH (20:43)
[2019-11-28] MEDS: DIVALPROEX 250 MG TAB PO SCH (20:43)
[2019-11-28] MEDS: VITAMIN D 1,000 INTERNATIONAL UNITS TABLET PO SCH (20:44)
[2019-11-28] MEDS: SERTRALINE HCL 50 MG TAB PO SCH (20:44)
[2019-11-28] MEDS: MULTIVITAMINS/MINERALS THERAP 1 TAB PO SCH (20:44)
[2019-11-28] MEDS: QUEtiapine FUMARATE 50 MG TAB PO SCH (20:44)
[2019-11-28] MEDS: CLOBETASOL PROP 0.05% OINT 30 GM TOP SCH (20:54)
[2019-11-28 21:29] LABS: HEMATOCRIT 23.5 % (36.0-47.0)
[2019-11-29] VITALS (36 sets, daily range): BP systolic 78–148; BP diastolic 47–99
[2019-11-29 00:04] LABS: HEMATOCRIT 24.3 % (36.0-47.0); HEMOGLOBIN 7.9 g/dl (12.0-15.5)
[2019-11-29] MEDS: NS 1,000 ML IV SCH (02:35)
[2019-11-29] MEDS ORDERED: NS 500 ML IV ONE (03:00)
[2019-11-29] MEDS: PIPERACILLIN/TAZOBACTAM SOD 3.375 GM in D5W MINI-BAG PLUS 50 ML IV SCH ×4 (05:00→22:07)
[2019-11-29] MEDS: QUEtiapine FUMARATE 25 MG TAB PO SCH (09:00)
[2019-11-29] MEDS: MEMANTINE 5MG TABLET (NAMENDA) PO SCH ×2 (09:00→21:00)
[2019-11-29] MEDS: PANTOPRAZOLE 40MG VIAL (C9113 PER 1) IV SCH ×2 (09:36→21:16)
[2019-11-29] MEDS ORDERED: POTASSIUM CHLORIDE INJ 40 MEQ in NS 1,000 ML IV SCH (10:33)
[2019-11-29 10:44] LABS: BASO # 0.1 10^3/uL (0.0-0.2); BASO % 0.3 % (0.0-1.0); EOS % 0.1 % (0.0-3.0); HEMATOCRIT 25.7 % (36.0-47.0); HEMOGLOBIN 8.8 g/dl (12.0-15.5); LYMPH # 1.4 10^3/uL (1.5-5.0); LYMPH % 7.1 % (24.0-44.0); MEAN CORPUSCULAR HEMOGLOBIN 30.2 pg (27.0-33.0); MEAN CORPUSCULAR HGB CONC 34.2 g/dl (32.0-36.5); MEAN CORPUSCULAR VOLUME 88.3 fl (80.0-96.0); MONO # 1.4 10^3/uL (0.0-0.8); MONO % 7.4 % (0.0-5.0); NEUTROPHILS # 15.8 10^3/uL (1.5-8.5); NEUTROPHILS % 83.4 % (36.0-66.0); PLATELET COUNT, AUTOMATED 192 10^3/uL (150-450); RED BLOOD COUNT 2.91 10^6/uL (4.00-5.40)
--- NOTE | 2019-11-29 10:45 | IPNPDOC ---
Text Note Date of Service The patient was seen on 11/29/19. NOTE Subjective: Patient is a 74 year old female with a PMHx of Alzheimer's / Vascular dementia, HTN, DLP, Anxiety, Osteoporosis, GERD (Gastritis / Duodenitis), Hx of Hemorrhoids / Diverticulosis, who presented to the ER after she had a chocking episode at [facility]. Heimlich maneuver was performed and patient developed hematemesis and was transferred. Patient was admitted to the hospitalist service and surgery was called on consultation. Currently patient was noted to have further hematemesis with clots overnight, as well as dark colored stool. Overnight she was given 2 additional units of PRBC and was given an additional 2 units by myself. Discussed with 3 children this morning about goals of care. Patient still remains DNR / DNI; family would like to proceed with EGD. Consulted Dr. Monroy for EGD this afternoon. Patient was seen and examined at the bedside. Currently not able to answer many questions. Objective: Vitals (See below) General: Lying in bed, awake / alert HEENT: NC, AT, dry blood around mouth CVS: Tachycardic, +S1S2 Lungs: Fair air entry b/l, -w/r/r Abdomen: Soft, ND, NT Extremities: - Edema, - Calf tenderness Assessment and plan: Acute Encephalopathy; possibly 2/2 Delirium on Dementia, possibly 2/2 infectious etiology - History of dementia, but is usually awake and participatory in the [facility]; usually oriented to self - Her current status of being nonverbal is new. - See below Leukocytosis - possibly 2/2 UTI, possibly 2/2 intra-abdominal infection - Remains afebrile - UA reviewed; consistent with infection - Blood cultures 11/24: No growth at 72 hours - Urine culture 11/24: E. Coli - CTA chest 11/24: The limits of this examination given both motion and artifact from the patient's arm there is no obvious evidence of pulmonary emboli. Possible pneumonitis, mild if real. Also be chronic interstitial changes. - CT abdomen/pelvis 11/24: 1. Very limited evaluation due to artifact. 2. Renal hypo-densities which cannot be determined as the Bosniak classification due to artifact. 3. Gastric antral wall thickening? 4. Retained feces. 5. T12 compression fracture of unknown age. 6. Possible panniculitis. 7. Possible pneumonitis. - c/w Zosyn (Day #5) Acute blood loss anemia - Hg will be trended after transfusion - s/p 2 units on 11/24; 2 units 11/27, 2 units of 11/28 - Will provided additional 2 units now - Discussed with Dr. Monroy; will have EGD completed today Hypokalemia - Will await AM labs - Will supplement IV with potassium Choking episode - likely 2/2 worsening of her dementia - c/w HOB elevation at 30 degrees, aspiration precautions, continuous pulse ox - Remains NPO - c/w IV fluids - Speech therapy for swallow evaluation after EGD - Reviewed MOLST and discussed with family; No PEG tube Alzheimers / Vascular Dementia - Patient is reported to be oriented only to person while at [place] - Currently is not able to answer very many questions - Discussed with family about natural progression of Dementia Chronic HTN - BP well controlled - Continue to hold BP medications Lichen sclerosis - c/w clobetasol GI prophylaxis - c/w Protonix DVT prophylaxis - c/w TEDs/Sequentials (Re: acute blood loss) Disposition: - Had extensive discussion with Caridad Hadley and 2 other children about goals of care - Will continue with Limited medical intervention / DNR / DNI - Will 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
[2019-11-29] MEDS ORDERED: KCL 40MEQ in NS 1000ML 1,000 ML IV SCH (11:00)
[2019-11-29 11:03] LABS: BLOOD UREA NITROGEN 35 MG/DL (7-18); CALCIUM LEVEL 6.9 MG/DL (8.8-10.2); CARBON DIOXIDE LEVEL 21 MEQ/L (21-32); CHLORIDE LEVEL 122 MEQ/L (98-107); CREATININE FOR GFR 0.84 MG/DL (0.55-1.30); GLOMERULAR FILTRATION RATE > 60.0 (>39); GLUCOSE, FASTING 156 MG/DL (70-100); POTASSIUM SERUM 3.6 MEQ/L (3.5-5.1); SODIUM LEVEL 150 MEQ/L (136-145)
[2019-11-29] MEDS ORDERED: POTASSIUM CHLORIDE INJ 40 MEQ in D5W/0.45% SODIUM CHLORIDE 1,000 ML IV SCH (11:15)
[2019-11-29] MEDS: KCL 40MEQ IN D5/0.45NS 1000ML 1,000 ML IV SCH (12:00)
[2019-11-29] MEDS ORDERED: MORPHINE 2 MG/ML 1ML VIAL (J2270) IV PRN (12:15)
[2019-11-29] MEDS ORDERED: LIDOCAINE 2% 100MG/5ML SDV (FOR ANES.) As Ordered ONE (13:20)
[2019-11-29] MEDS ORDERED: propofoL 200 MG/20 ML VIAL As Ordered ONE (13:20)
[2019-11-29] MEDS ORDERED: SIMETHICONE 40MG/0.6ML DROPS 30ML As Ordered ONE (13:34)
[2019-11-29] MEDS ORDERED: KETAMINE HCL 200 MG/20 ML VIAL As Ordered ONE (14:50)
[2019-11-29] MEDS ORDERED: EPINEPHrine 1MG/10ML SYRINGE 1.5IN As Ordered ONE ×2 (14:59→15:41)
[2019-11-29] MEDS ORDERED: METOCLOPRAMIDE INJ 10MG/2ML VIAL (J2765 PER 1) As Ordered ONE (15:00)
[2019-11-29] MEDS ORDERED: PHENYLEPHRINE 10MG/ML 1ML VIAL (J2370 PER 1) As Ordered ONE ×2 (15:40→15:43)
[2019-11-29] MEDS ORDERED: ROCURONIUM BROMIDE 50 MG/5 ML VIAL As Ordered ONE (15:41)
[2019-11-29] MEDS ORDERED: ONDANSETRON 4MG/2ML VIAL As Ordered ONE (15:56)
[2019-11-29] MEDS ORDERED: propofoL 1,000 MG in IV 1 EA IV SCH (17:18)
--- NOTE | 2019-11-29 17:23 | IPNPDOC ---
Date Seen The patient was seen on 11/29/19. Progress Note Post procedure note: Interval history: Patient underwent urgent EGD for melena and hematemesis. Patient is noted with large duodenal ulcer with visible blood vessel and recent bleeding and high risk bleeding features. The ulcer is treated with epinephrine injection, thermal therapy and Clips placement. Due to high risk bleeding features, patient was left intubated post procedure and transferred to ICU for further management. Patient received 2 units during the procedure. ( detailed procedure note in operative notes, printed copy of the report in chart). Post procedure exam: Vitals: stable BP, Tachycardia noted. HEENT; Orally intubated, on Ventilator support. Abdomen: Soft, non distended, normal bowel sounds. NG tube placed at the end of procedure. Chest: Bilateral air entry Recommendations: -- NPO for atleast 48 hours. -- IV hydration and electrolyte replacement. -- Monitor Hemoglobin, Hematocrit and INR/ PTT levels and transfuse as needed to keep hemoglobin around 8 and INR<1.5 -- Continue IV protonix 40 mg twice daily for 2 days and if stable then to switch to oral Pantoprazole 40 mg twice daily for 8 weeks. -- Obtain H. pylori serology ( ordered the labs for tomorrow). -- If positive for H. pylori will treat with triple therapy if not contrai ndicated. -- Ventilator management as per the ICU team. -- If recurrent bleeding or drop in Hemoglobin to consider IR consult or surgery consult. -- Avoid NSAIDs. ( Hold aspirin as well for atleast 5 days) -- Update GI if any change in status. Plan of care discussed with primary team and patient's daughters. The procedure findings were discussed with patient's daughters ( Caridad and tiffanie) in detail and patient copy provided. All questions answered. VS, I&O, 24H, Fishbone Vital Signs/I&O Vital Signs Date Time Temp Pulse Resp B/P (MAP) Pulse Ox O2 Delivery O2 Flow Rate FiO2 11/29/19 13:55 97.9 117 22 138/88 97 Room Air 11/29/19 08:00 2.0 I&O- Last 24 Hours up to 6 AM 11/29/19 05:59 Intake Total 800 ml Output Total 1100 ml Balance -300 ml Laboratory Data 24H LABS Laboratory Tests 2 11/28/19 17:49: Bedside Glucose (Misc Panel) 125H 11/29/19 00:23: Bedside Glucose (Misc Panel) 126H 11/29/19 10:26: Immature Granulocyte % (Auto) 1.7, Neutrophils (%) (Auto) 83.4H, Lymphocytes (%) (Auto) 7.1L, Monocytes (%) (Auto) 7.4H, Eosinophils (%) (Auto) 0.1, Basophils (%) (Auto) 0.3, Neutrophils # (Auto) 15.8H, Lymphocytes # (Auto) 1.4L, Monocytes # (Auto) 1.4H, Eosinophils # (Auto) 0.0, Basophils # (Auto) 0.1, Nucleated Red Blood Cells % (auto) 0.2H, Anion Gap 7L, Glomerular Filtration Rate > 60.0, Calcium Level 6.9L, Magnesium Level 2.0 11/29/19 12:30: Coronavirus (COVID-19)(PCR) NEGATIVE CBC/BMP Laboratory Tests 11/28/19 21:09 11/28/19 23:51 11/29/19 10:26 Microbiology Microbiology 11/28/19 Stool Occult Blood (KATHY) - Final, Complete 11/25/19 Urine Culture - Final, Complete Escherichia Coli 11/25/19 Blood Culture - Preliminary, Resulted No Growth after 72 hours. All specime... PAUL MELGOZA MD Nov 29, 2019 17:23
--- NOTE | 2019-11-29 17:47 | REPVR ---
PROCEDURE INFORMATION: Exam: XR Chest, 1 View Exam date and time: 11/29/2019 5:04 PM Age: 74 years old Clinical indication: Device placement; Other: Central line placement; Additional info: Placement of central line and oet TECHNIQUE: Imaging protocol: XR of the chest Views: 1 view. COMPARISON: CR PORTABLE CHEST X-RAY 11/28/2019 9:25 AM FINDINGS: Tubes, catheters and devices: Comparison to the previous chest radiograph from 11/28/2019 shows interval placement of an endotracheal tube with the distal tip of the tube 4 cm above the juve, in satisfactory position. The esophagogastric tube distal tip lies well below the diaphragm in the mid-distal stomach area. The right subclavian central line distal tip is not seen as it is in the right side upper neck and I would recommend repositioning. Lungs: Interval development of subsegmental pulmonary atelectases in the right lower lobe. Both lungs are low in volume. Pleural space: Unremarkable. No pleural effusion. No pneumothorax. Heart/Mediastinum: Unremarkable. No cardiomegaly. Bones/joints: Unremarkable. IMPRESSION: 1. Comparison to the previous chest radiograph from 11/28/2019 shows interval placement of an endotracheal tube with the distal tip of the tube 4 cm above the juve, in satisfactory position. The esophagogastric tube distal tip lies well below the diaphragm in the mid-distal stomach area. 2. The right subclavian central line distal tip is not seen as it is in the right side upper neck and I would recommend repositioning. 3. Interval development of subsegmental pulmonary atelectases in the right lower lobe. Both lungs are low in volume. Electronically signed by: Easton Tavares On 11/29/2019 17:46:39 PM
[2019-11-29 17:50] LABS: HEMATOCRIT 25.2 % (36.0-47.0); HEMOGLOBIN 8.2 g/dl (12.0-15.5); MEAN CORPUSCULAR HEMOGLOBIN 30.1 pg (27.0-33.0); MEAN CORPUSCULAR HGB CONC 32.5 g/dl (32.0-36.5); MEAN CORPUSCULAR VOLUME 92.6 fl (80.0-96.0); PLATELET COUNT, AUTOMATED 130 10^3/uL (150-450); RED BLOOD COUNT 2.72 10^6/uL (4.00-5.40); WHITE BLOOD COUNT 20.2 10^3/uL (4.0-10.0)
[2019-11-29 18:00] LABS: ABG BASE EXCESS -12.2 (-2.0-2.0); ABG HCO3 11.7 MEQ/L (22.0-26.0); ABG O2 SATURATION 98.9 % (95.0-99.0); ABG PARTIAL PRESSURE CO2 20.8 mmHg (35.0-45.0); ABG PARTIAL PRESSURE O2 127.6 mmHg (75.0-100.0); ABG STANDARD HCO3 14.7 MEQ/L (22.0-26.0); ABG TOTAL CO2 12.3 MEQ/L (23.0-31.0); ABG pH (ARTERIAL) 7.367 UNITS (7.350-7.450)
[2019-11-29] MEDS ORDERED: NS 1,000 ML IV ONE (18:00)
[2019-11-29 18:03] LABS: INR 1.58; PARTIAL THROMBOPLASTIN TIME 31.5 SECONDS (25.0-38.4); PROTHROMBIN TIME 19.2 SECONDS (11.8-14.0)
[2019-11-29] MEDS ORDERED: MIDAZOLAM HCL 50 MG in D5W 40 ML IV SCH (18:15)
[2019-11-29 18:29] LABS: CALCIUM LEVEL 6.7 MG/DL (8.8-10.2); CREATININE FOR GFR 1.01 MG/DL (0.55-1.30); GLOMERULAR FILTRATION RATE 57.4 (>39); MAGNESIUM LEVEL 1.9 MG/DL (1.8-2.4); POTASSIUM SERUM 4.4 MEQ/L (3.5-5.1)
[2019-11-29] MEDS: MIDAZOLAM INJ 2MG/2ML VIAL (J2250 PER 1MG) IV PRN ×6 (19:07→22:07)
--- NOTE | 2019-11-29 19:52 | REPVR ---
PROCEDURE INFORMATION: Exam: XR Abdomen, 1 View Exam date and time: 11/29/2019 7:08 PM Age: 74 years old Clinical indication: Other: Possible gi bleed; Additional info: Suspect gi bleed TECHNIQUE: Imaging protocol: XR of the abdomen. Views: Frontal supine view of the abdomen. 1 View. COMPARISON: CR PORTABLE ABDOMEN (KUB) 11/28/2019 10:20 AM FINDINGS: Tubes, catheters and devices: Comparison to the previous abdomen radiograph from 11/28/2019 shows interval placement of an esophagogastric tube with the distal tip of the tube approximately 9 cm below the diaphragm, in the proximal to mid-stomach. Gastrointestinal tract: A moderate amount of gas or air is seen in the small and large bowel of the abdomen suggestive of a mild ileus. Bones/joints: Chronic degenerative vertebral body endplate osteophytosis is seen in the lumbar spine at T12-S1. IMPRESSION: 1. Comparison to the previous abdomen radiograph from 11/28/2019 shows interval placement of an esophagogastric tube with the distal tip of the tube approximately 9 cm below the diaphragm, in the proximal to mid-stomach. 2. A moderate amount of gas or air is seen in the small and large bowel of the abdomen suggestive of a mild ileus. 3. Chronic degenerative vertebral body endplate osteophytosis is seen in the lumbar spine at T12-S1. Electronically signed by: Easton Tavares On 11/29/2019 19:51:32 PM
[2019-11-29] MEDS ORDERED: IPRATROPIUM 0.5MG/ALBUTEROL 2.5MG INH SOL UD 3ML (DUONEB) NEB SCH (20:00)
[2019-11-29] MEDS: SENOKOT S TAB PO SCH (21:00)
[2019-11-29] MEDS: SERTRALINE HCL 50 MG TAB PO SCH (21:00)
[2019-11-29] MEDS ORDERED: CHLORHEXIDINE GLUCONATE 0.12 % 15ML UDC (PERIDEX ORAL RINSE) MT SCH (21:00)
[2019-11-29] MEDS: VITAMIN D 1,000 INTERNATIONAL UNITS TABLET PO SCH (21:00)
[2019-11-29] MEDS: DIVALPROEX 250 MG TAB PO SCH (21:00)
[2019-11-29] MEDS: QUEtiapine FUMARATE 50 MG TAB PO SCH (21:00)
[2019-11-29] MEDS: MULTIVITAMINS/MINERALS THERAP 1 TAB PO SCH (21:00)
[2019-11-29 22:40] LABS: HEMATOCRIT 31.1 % (36.0-47.0); MEAN CORPUSCULAR HEMOGLOBIN 30.5 pg (27.0-33.0); MEAN CORPUSCULAR HGB CONC 33.4 g/dl (32.0-36.5); MEAN CORPUSCULAR VOLUME 91.2 fl (80.0-96.0); PLATELET COUNT, AUTOMATED 104 10^3/uL (150-450); RED BLOOD COUNT 3.41 10^6/uL (4.00-5.40)
[2019-11-29] MEDS: CLOBETASOL PROP 0.05% OINT 30 GM TOP SCH (22:45)
[2019-11-29 22:46] LABS: HEMOGLOBIN 10.4 g/dl (12.0-15.5)
[2019-11-29 22:56] LABS: CALCIUM LEVEL 6.1 MG/DL (8.8-10.2); CREATININE FOR GFR 1.06 MG/DL (0.55-1.30); GLOMERULAR FILTRATION RATE 54.2 (>39); POTASSIUM SERUM 3.7 MEQ/L (3.5-5.1)
[2019-11-30] VITALS (25 sets, daily range): BP systolic 84–127; BP diastolic 47–68; O2SAT 99
[2019-11-30] MEDS: VALPROATE SOD INJ 250 MG in D5W 50 ML IV SCH ×2 (00:43→21:13)
[2019-11-30] MEDS: VANCOMYCIN HCL 1,000 MG, VIAL MATE ADAPTER 1 EACH in D5W 250 ML IV SCH ×2 (00:43→13:28)
[2019-11-30 01:31] LABS: HEMATOCRIT 25.6 % (36.0-47.0); HEMOGLOBIN 8.5 g/dl (12.0-15.5); MEAN CORPUSCULAR HEMOGLOBIN 30.5 pg (27.0-33.0); MEAN CORPUSCULAR HGB CONC 33.2 g/dl (32.0-36.5); MEAN CORPUSCULAR VOLUME 91.8 fl (80.0-96.0); RED BLOOD COUNT 2.79 10^6/uL (4.00-5.40); WHITE BLOOD COUNT 23.6 10^3/uL (4.0-10.0)
[2019-11-30 01:45] LABS: INR 1.21; PARTIAL THROMBOPLASTIN TIME 21.8 SECONDS (25.0-38.4); PROTHROMBIN TIME 15.6 SECONDS (11.8-14.0)
[2019-11-30 02:00] LABS: PLATELET COUNT, AUTOMATED 90 10^3/uL (150-450)
[2019-11-30] MEDS: PIPERACILLIN/TAZOBACTAM SOD 3.375 GM in D5W MINI-BAG PLUS 50 ML IV SCH ×4 (05:21→23:23)
[2019-11-30 05:48] LABS: ABG BASE EXCESS -3.6 (-2.0-2.0); ABG O2 SATURATION 98.9 % (95.0-99.0); ABG PARTIAL PRESSURE CO2 30.4 mmHg (35.0-45.0); ABG PARTIAL PRESSURE O2 166.6 mmHg (75.0-100.0); ABG STANDARD HCO3 21.5 MEQ/L (22.0-26.0); ABG TOTAL CO2 20.9 MEQ/L (23.0-31.0); ABG pH (ARTERIAL) 7.436 UNITS (7.350-7.450); ALBUMIN 1.6 GM/DL (3.2-5.2); BILIRUBIN,TOTAL 0.5 MG/DL (0.2-1.0); CALCIUM LEVEL 6.7 MG/DL (8.8-10.2); CREATININE FOR GFR 1.16 MG/DL (0.55-1.30); GLOMERULAR FILTRATION RATE 48.9 (>39); MAGNESIUM LEVEL 1.7 MG/DL (1.8-2.4); PHOSPHORUS LEVEL 2.5 MG/DL (2.5-4.9); POTASSIUM SERUM 3.5 MEQ/L (3.5-5.1); TOTAL PROTEIN 3.8 GM/DL (6.4-8.2)
[2019-11-30] MEDS: MIDAZOLAM INJ 2MG/2ML VIAL (J2250 PER 1MG) IV PRN (05:49)
[2019-11-30 05:52] LABS: INR 1.32; PROTHROMBIN TIME 16.7 SECONDS (11.8-14.0)
[2019-11-30 05:53] LABS: PARTIAL THROMBOPLASTIN TIME 29.5 SECONDS (25.0-38.4)
[2019-11-30] MEDS ORDERED: MIDAZOLAM HCL 50 MG in D5W 40 ML IV SCH (07:00)
[2019-11-30] MEDS ORDERED: MAG SULF 1GM/100ML (MAG RUN) 1 GM in IV 1 EA IV ONE (07:15)
--- NOTE | 2019-11-30 07:51 | CR.PDOC ---
General Date of Consultation: Nov 29, 2019 Referring Provider: MARLON DEGROOT MD Attending Physician: PAUL MELGOZA MD Consultation Referring physician / PCP : Dr. Degroot Reason for consult: hematemesis and drop in hemoglobin. HPI: 74 year old female patient with Alzheiners/ vascular dementia ( AO x 0), HTN, prior gastritis and duodenitis, was admitted from [facility] for episode of hematemesis after choking episode. Patient is noted to have multiple black stools and drop in hemoglobin. Initially patient was treated conservatively but due to recurrent episode of hematemesis, GI was consulted. Patient could not provide any history due to her mental status. As per the EMR and Patients daughter, patient is taking aspirin and had remote history of smoking. No use of anticoagulants. Patient is also noted to have elevated WBC counts since hospitalization and is being treated with empiric antibiotics ( chest Xray clear at the time of hospitalization). Pertinent negative GI symptoms: NO recent use of anticoagulants or NSAIDs. Review of Systems: Limited due to patient mental status. Home medications: reviewed. No Plavix and No anticoagulants Medical h/o: As above. Surgical h/o: Hysterectomy with left oophorectomy.. Social h/o: Denies Alcohol, remote history of smoking, Currently lives in [facility] ( [facility]), Health care proxy Daughter Caridad Padilla ). Family h/o of GI cancers - None Prior Endoscopies: --- EGD by [facility] in 2012 noted gastritis and duodenitis. Prior GI evaluation: None in [facility] Exam: Vitals: reviewed General: Alert and oriented x 0, not in acute distress HEENT: Conjunctival pallor, no icterus. NO cervical lymphadenopathy. Chest: symmetric with bilateral air entry, CVS: S1, S2 heard, Abdomen: non-distended, soft, no rigidity or guarding, no palpable masses, normal bowel sounds heard. Rectal exam: Patient refused / Deferred at this time in view of scheduled procedure. Extremities: pulses palpable, no pedal edema, mild dependent edema noted. 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 Labs: reviewed. Imaging: none / reviewed. Impression: -- Acute onset hematemesis with melena and drop in hemoglobin, prior history of gastritis and duodenitis DDx- PUD vs MWT vs AVMs. -- Anemia from acute GI bleeding. Recommendations: -- Patients daughter is educated about the prior test results and all questions answered. -- Continue NPO -- IV PPI ( protonix 40 mg IV twice daily for now -- Avoid NSAIDs. (Consider holding aspirin due to active Gi bleeding). -- Patient status of DNR/ DNI has been revoked by her daughter ( HCP) in vie wf acute Gi bleeding and wanted to proceed with EGD for further therapy of the GI bleeding. -- Patients daughter ( HCP) is educated about the procedure, indications, risks (including but not limited to bleeding, infection, perforation, anesthesia risks, including ), benefits and all alternatives including conservative measures without intervention. Patient verbalized understanding and consented for the procedure. -- Please follow operative note for post procedure recommendations. -- Plan of care educated to patients daughter, who verbalized understanding and agreed. All questions answered. -- Recommendations communicated to primary team. Vital Signs/I&O Vital Signs Date Time Temp Pulse Resp B/P (MAP) Pulse Ox O2 Delivery O2 Flow Rate FiO2 11/30/19 04:00 25 11/30/19 04:00 98.4 106 18 97/54 (68) 99 Ventilator 11/29/19 08:00 2.0 I&O- Last 24 Hours up to 6 AM 11/30/19 06:00 Intake Total 5878 ml Output Total 675 ml Balance 5203 ml Laboratory Data Labs 24H Laboratory Tests 2 11/29/19 10:26: Immature Granulocyte % (Auto) 1.7, Neutrophils (%) (Auto) 83.4H, Lymphocytes (%) (Auto) 7.1L, Monocytes (%) (Auto) 7.4H, Eosinophils (%) (Auto) 0.1, Basophils (%) (Auto) 0.3, Neutrophils # (Auto) 15.8H, Lymphocytes # (Auto) 1.4L, Monocytes # (Auto) 1.4H, Eosinophils # (Auto) 0.0, Basophils # (Auto) 0.1, Nucleated Red Blood Cells % (auto) 0.2H, Anion Gap 7L, Glomerular Filtration Rate > 60.0, Calcium Level 6.9L, Magnesium Level 2.0 11/29/19 12:30: Coronavirus (COVID-19)(PCR) NEGATIVE 11/29/19 17:23: Nucleated Red Blood Cells % (auto) 0.3H, Anion Gap 8, Glomerular Filtration Rate 57.4, Calcium Level 6.7L, Magnesium Level 1.9, Prothrombin Time 19.2H, Prothromb Time International Ratio 1.58, Activated Partial Thromboplast Time 31.5, Fibrinogen 249 11/29/19 17:42: Blood Gas Bicarbonate Standard 14.7L, Arterial Blood pH 7.367, Arterial Blood Partial Pressure CO2 20.8L, Arterial Blood Partial Pressure O2 127.6H, Arterial Blood Total CO2 12.3L, Arterial Blood HCO3 11.7L, Arterial Blood Base Excess - 12.2L, Arterial Blood Oxygen Saturation 98.9 11/29/19 18:05: Bedside Glucose (Misc Panel) 254H 11/29/19 22:27: Nucleated Red Blood Cells % (auto) 0.3H, Anion Gap 6L, Glomerular Filtration Rate 54.2, Calcium Level 6.1L 11/30/19 00:48: Urine Color YELLOW, Urine Appearance CLOUDYH, Urine pH 5.0, Urine Specific [place] 1.029, Urine Protein NEGATIVE, Urine Glucose (UA) 1+H, Urine Ketones NEGATIVE, Urine Blood 2+H, Urine Nitrite NEGATIVE, Urine Bilirubin NEGATIVE, Urine Urobilinogen 0.2, Urine Leukocyte Esterase NEGATIVE, Urine WBC (Auto) 9H, Urine RBC (Auto) 22H, Urine Hyaline Casts (Auto) 0, Urine Bacteria (Auto) NEGATIVE, Urine Squamous Epithelial Cells 0, Urine Sperm (Auto) 11/30/19 01:19: Nucleated Red Blood Cells % (auto) 0.3H, Immature Platelet Fraction 4.9, Prothr ombin Time 15.6H, Prothromb Time International Ratio 1.21, Activated Partial Thromboplast Time 21.8L, Lactic Acid Level 2.1*H, Valproic Acid (Depakene) Level 3.2L 11/30/19 04:57: Prothrombin Time 16.7H, Prothromb Time International Ratio 1.32, Activated Partial Thromboplast Time 29.5, Fibrinogen 197L, Blood Gas Bicarbonate Standard 21.5L, Arterial Blood pH 7.436, Arterial Blood Partial Pressure CO2 30.4L, Arterial Blood Partial Pressure O2 166.6H, Arterial Blood Total CO2 20.9L, Arterial Blood HCO3 20.0L, Arterial Blood Base Excess -3.6L, Arterial Blood Oxygen Saturation 98.9, Anion Gap 5L, Glomerular Filtration Rate 48.9, Lactic Acid Level 1.6, Calcium Level 6.7L, Phosphorus Level 2.5, Magnesium Level 1.7L, Total Bilirubin 0.5, Aspartate Amino Transf (AST/SGOT) 14, Alanine Aminotransferase (ALT/SGPT) 15, Alkaline Phosphatase 37L, Lactate Dehydrogenase 153, Total Creatine Kinase 42, Total Protein 3.8L, Albumin 1.6L, Albumin/Globulin Ratio 0.7L, Triglycerides Level 156H, Cholesterol Level 81 CBC/BMP Laboratory Tests 11/29/19 10:26 11/29/19 17:23 11/29/19 22:27 11/30/19 01:19 11/30/19 04:57 Microbiology Microbiology 11/30/19 Blood Culture, Received Pending 11/30/19 Blood Culture, Received Pending 11/28/19 Stool Occult Blood (KATHY) - Final, Complete 11/25/19 Urine Culture - Final, Complete Escherichia Coli 11/25/19 Blood Culture - Final, Complete NO GROWTH AFTER 5 DAYS Allergies Coded Allergies: Quinolones (Verified Allergy, Unknown, 11/24/19) hydrocodone (Verified Allergy, Unknown, 11/24/19) levofloxacin (Verified Allergy, Unknown, 11/24/19) oxycodone (Verified Allergy, Unknown, 11/24/19) Home Medications Scheduled Aspirin (Aspirin EC) 81 Mg Tab, 81 MG PO QHS, (Reported) Cholecalciferol (Vitamin D3) (Vitamin D3) 25 Mcg Capsule, 1,000 UNITS PO QHS, (Reported) Clobetasol Propionate (Temovate) 15 Gm Oint...g., 1 DOSE TOP QHS, (Reported) APPLY TO VULVA Divalproex Sodium (Divalproex Sodium) 250 Mg Tablet.dr, 250 MG PO QHS, (Reported) Furosemide (Furosemide) 20 Mg Tablet, 20 MG PO QAM, (Reported) Memantine HCl (Namenda Xr) 28 Mg Cap, 28 CAP PO QHS, (Reported) Multivitamins (Thera M Plus Tablet) 1 Each Tablet, 1 TAB PO QHS, (Reported) Quetiapine Fumarate (Quetiapine Fumarate) 50 Mg Tab, 50 MG PO QHS, (Reported) Quetiapine Fumarate (Seroquel) 25 Mg Tablet, 25 MG PO QAM, (Reported) Sennosides/Docusate Sodium (Senna Plus Tablet) 1 Each Tablet, 1 TAB PO QHS, (Reported) Sertraline HCl (Sertraline HCl) 50 Mg Tab, 50 MG PO QHS, (Reported) Scheduled PRN Acetaminophen (Acetaminophen) 325 Mg Tablet, 650 MG PO Q4H PRN for PAIN / FEVER, (Reported) Bisacodyl (Dulcolax) 10 Mg Supp.rect, 10 MG DE DAILY PRN for CONSTIPATION, (Reported) Magnesium Hydroxide (Milk of Magnesia) 400 Mg/5 Ml Oral.susp, 30 ML PO DAILY PRN for CONSTIPATION, (Reported) Sodium Phosphate,[place]-Dibasic (Enema) 133 Ml Enema, 1 ANTONIO DE DAILY PRN for CONSTIPATION, (Reported) Triamcinolone Acet (Triamcinolone Acetonide 0.1% Oint) 15 Gm Oint...g., 1 DOSE TOP BID PRN for dermititis, (Reported) PAUL MELGOZA MD Nov 30, 2019 07:51
[2019-11-30 07:54] LABS: H PYLORI QUALITATIVE IgG NEGATIVE (NEGATIVE)
--- NOTE | 2019-11-30 08:29 | IPNPDOC ---
Text Note Date of Service The patient was seen on 11/30/19. NOTE Subjective: Patient is a 74 year old female with a PMHx of Alzheimer's / Vascular dementia, HTN, DLP, Anxiety, Osteoporosis, GERD (Gastritis / Duodenitis), Hx of Hemorrhoids / Diverticulosis, who presented to the ER after she had a chocking episode at [facility]. Heimlich maneuver was performed and patient developed hematemesis and was transferred. Patient was admitted to the hospitalist service and surgery was called on consultation. On 11/27-11/28 night patient was noted to have further hematemesis with clots, as well as dark colored stool. Discussed with 3 children on the morning of 11/28 about goals of care. Patient still remains DNR / DNI; family would like to proceed with EGD. Consulted Dr. Monroy for EGD that was performed on the afternoon of 11/28. Patient was seen and examined at the bedside. Remains intubated and on a versed drip. Objective: Vitals (See below) General: Lying in bed, sedated HEENT: NC, AT, +NG tube, +ET tube CVS: Tachycardic, +S1S2 Lungs: Fair air entry b/l, no appreciable wheezing/ rhonchi / rales Abdomen: Soft, non-distended, non-tender Extremities: LE are without edema, - Calf tenderness Assessment and plan: Ventilator dependent respiratory failure - Intubated after suspicion of aspiration on 11/28 - Had discussed with family about the potential for intubation during the OR; family had verbalized understanding given her MOLST form indicated DNR/DNI - Will potentially be extubated today - Currently on Versed; will hold for weaning trial - Pulmonary on consultation; appreciate their input Acute Metabolic Encephalopathy; possibly 2/2 infectious etiology, possibly 2/2 Delirium on Dementia, - History of dementia, but is usually awake and participatory in the [facility]; usually oriented to self - Her current status of being nonverbal is new. - See below Leukocytosis - possibly 2/2 UTI, possibly 2/2 intra-abdominal infection - Afebrile - UA reviewed; consistent with infection - Repeat blood cultures 11/29: Pending - Blood cultures 11/24: No growth at 5 days - Urine culture 11/24: E. Coli - MRSA screen positive - CTA chest 11/24: The limits of this examination given both motion and artifact from the patient's arm there is no obvious evidence of pulmonary emboli. Possible pneumonitis, mild if real. Also be chronic interstitial changes. - CT abdomen/pelvis 11/24: 1. Very limited evaluation due to artifact. 2. Renal hypo-densities which cannot be determined as the Bosniak classification due to artifact. 3. Gastric antral wall thickening? 4. Retained feces. 5. T12 compression fracture of unknown age. 6. Possible panniculitis. 7. Possible p neumonitis. - c/w Zosyn (Day #6); Vancomycin added overnight (Day #1) Acute blood loss anemia - likely 2/2 bleeding duodenal ulcer (s/p Clip, Cauterization, Epinephrine) - Hg will be trended after transfusion - s/p 2 units PRBC on 11/24 - s/p 2 units PRBC on 11/27 - s/p 7 units PRBC and 2 units FFP on 11/28 - s/p 2 units PRBC on 11/29 - Repeat H&H CBC pending today - Dr. Monroy (GI) on consultation; s/p EGD on 11/28 s/p Hypokalemia - c/w supplemented IV fluids with potassium Hypernatremia - c/w 1/2NS; will change to D5W if required - Repeat BMP at 2PM Choking episode - likely 2/2 worsening of her dementia - c/w HOB elevation at 30 degrees, aspiration precautions, continuous pulse ox - Remains NPO - c/w IV fluids - Speech therapy for swallow evaluation once stable - Reviewed MOLST and discussed with family; No PEG tube Alzheimers / Vascular Dementia - Patient is reported to be oriented only to person while at [place] - Currently intubated / sedated - Discussed with family about natural progression of Dementia Chronic HTN - Patient has been hypotensive, but responded to volume resuscitation with IV fluids / PRBC - BP medications on hold Lichen sclerosis - c/w clobetasol GI prophylaxis - c/w Protonix DVT prophylaxis - c/w TEDs/Sequentials (Re: acute blood loss) Disposition: - Weaning trial today - Will again discuss with family goals of care VS,Fishbone, I+O VS, Fishbone, I+O Laboratory Tests 11/29/19 10:26 11/29/19 17:23 11/29/19 22:27 11/30/19 01:19 11/30/19 04:57 Vital Signs Date Time Temp Pulse Resp B/P (MAP) Pulse Ox O2 Delivery O2 Flow Rate FiO2 11/30/19 06:30 98.1 105 18 96/51 99 Ventilator 25 11/29/19 08:00 2.0 I&O- Last 24 Hours up to 6 AM 11/30/19 06:00 Intake Total 6932 ml Output Total 750 ml Balance 6182 ml MARLON DEGROOT MD Nov 30, 2019 08:29
[2019-11-30] MEDS: MEMANTINE 5MG TABLET (NAMENDA) PO SCH ×2 (09:00→20:43)
[2019-11-30] MEDS: QUEtiapine FUMARATE 25 MG TAB PO SCH (09:00)
[2019-11-30] MEDS: PANTOPRAZOLE 40MG VIAL (C9113 PER 1) IV SCH ×2 (09:58→21:13)
--- NOTE | 2019-11-30 11:39 | ROOR ---
" Patient Name: Ayah Melgar Procedure Date: 11/29/2019 1:38 PM Date of : 1945 Age: 74 Gender: Female Note Status: Finalized Procedure: Upper GI endoscopy Indications: Hematemesis, Melena, Active gastrointestinal bleeding Providers: Manas Monroy MD Referring MD: Blu Noel Do Requesting Provider: Medicines: Monitored Anesthesia Care Complications: No immediate complications. Procedure: Pre-Anesthesia Assessment: - Prior to the procedure, a History and Physical was performed, and patient medications and allergies were reviewed. The patient is competent. The risks and benefits of the procedure and the sedation options and risks were discussed with the patient. All questions were answered and informed consent was obtained. Patient identification and proposed procedure were verified by the physician, the nurse and the anesthesiologist in the procedure room. Mental Status Examination: alert and oriented. Airway Examination: normal oropharyngeal airway and neck mobility. Respiratory Examination: clear to auscultation. CV Examination: normal. Prophylactic Antibiotics: The patient does not require prophylactic antibiotics. Prior Anticoagulants: The patient has taken no previous anticoagulant or antiplatelet agents. ASA Grade Assessment: III - A patient with severe systemic disease. After reviewing the risks and benefits, the patient was deemed in satisfactory condition to undergo the procedure. The anesthesia plan was to use monitored anesthesia care (MAC). Immediately prior to administration of medications, the patient was re-assessed for adequacy to receive sedatives. The heart rate, respiratory rate, oxygen saturations, blood pressure, adequacy of pulmonary ventilation, and response to care were monitored throughout the procedure. The physical status of the patient was re-assessed after the procedure. The Endoscope was introduced through the mouth, and advanced to the second part of duodenum. The upper GI endoscopy was accomplished without difficulty. The patient tolerated the procedure well. Findings: The examined esophagus was normal. Red blood was found in the gastric body and in the gastric antrum. One non-bleeding cratered duodenal ulcer with spurting hemorrhage (Alen Class Ia) was found in the duodenal bulb. The lesion was 15 mm in largest dimension. Area was successfully injected with 6 mL of a 1:10,000 solution of epinephrine for drug delivery. Coagulation for destruction of remaining portion of lesion using heater probe was successful. For hemostasis, six hemostatic clips were successfully placed. There was no bleeding at the end of the procedure. Impression: - Normal esophagus. - Red blood in the gastric body and in the gastric antrum. - Non-bleeding duodenal ulcer with spurting hemorrhage (Alen Class Ia). Injected. Treated with a heater probe. Clips were placed. - No specimens collected. Recommendation: - Patient has a contact number available for emergencies. The signs and symptoms of potential delayed complications were discussed with the patient. Return to normal activities tomorrow. Written discharge instructions were provided to the patient. - NPO for 2 days, then advance as tolerated to resume previous diet. - Continue present medications. - Use Protonix (pantoprazole) 40 mg IV daily |for 2 days|. - Perform an H. pylori serology tomorrow. - If Biopsy shows H. pylori will need therapy with antibiotic course.. - Return patient to ICU for observation. - No aspirin, ibuprofen, naproxen, or other non-steroidal anti-inflammatory drugs. - Telephone endoscopist if symptomatic. - Return to primary care physician. Manas Monroy MD Manas Monroy MD 11/29/2019 4:27:02 PM Electronically signed by Manas Monroy MD Number of Addenda: 0 Note Initiated On: 11/29/2019 1:38 PM Estimated Blood Loss: Estimated blood loss was minimal."
[2019-11-30 11:41] LABS: BASO # 0.1 10^3/uL (0.0-0.2); BASO % 0.4 % (0.0-1.0); EOS # 0.1 10^3/uL (0.0-0.5); EOS % 0.6 % (0.0-3.0); HEMATOCRIT 28.7 % (36.0-47.0); HEMOGLOBIN 9.7 g/dl (12.0-15.5); LYMPH # 1.7 10^3/uL (1.5-5.0); LYMPH % 9.6 % (24.0-44.0); MEAN CORPUSCULAR HEMOGLOBIN 31.1 pg (27.0-33.0); MEAN CORPUSCULAR HGB CONC 33.8 g/dl (32.0-36.5); MONO # 1.7 10^3/uL (0.0-0.8); MONO % 9.3 % (0.0-5.0); NEUTROPHILS # 13.9 10^3/uL (1.5-8.5); NEUTROPHILS % 76.9 % (36.0-66.0); RED BLOOD COUNT 3.12 10^6/uL (4.00-5.40); WHITE BLOOD COUNT 18.1 10^3/uL (4.0-10.0)
[2019-11-30 11:46] LABS: PLATELET COUNT, AUTOMATED 91 10^3/uL (150-450)
[2019-11-30 12:04] LABS: CALCIUM LEVEL 6.8 MG/DL (8.8-10.2); MAGNESIUM LEVEL 2.1 MG/DL (1.8-2.4); POTASSIUM SERUM 3.8 MEQ/L (3.5-5.1)
--- NOTE | 2019-11-30 13:59 | CCN ---
DATE: 11/29/2019 SUBJECTIVE: I was called to evaluate this 74-year-old female in the Intensive Care Unit, with upper GI bleeding. She was taken to the Operating Room today for an EGD where a large duodenal ulcer was found and was actively bleeding. The procedure involved injection and cauterization. The bleeding was persistent. She has received multiple transfusions. PAST MEDICAL HISTORY: There is a past medical history in the electronic health record of remote smoking, hypertension, dementia for 12 years, gastritis, diverticulitis. She has been a resident of [facility] since June of this year. PHYSICAL EXAMINATION: VITAL SIGNS: At bedside her temperature is 97, pulse rate 120, respirations 16/16 delivered, blood pressure 95/54. HEENT: Pupils are small. She has an NG tube in place draining bright red blood. Endotracheal tube is at 20 to 21 cm at the lip line. NECK: Supple, no meningismus. HEART: Regular, somewhat distant with no murmurs. LUNGS: Breath sounds coarse, clear bilaterally with some dullness in the bases. ABDOMEN: Soft. There is dark dylan stool. EXTREMITIES: No edema. DIAGNOSTIC STUDIES: White cell count is 19, hemoglobin 88, hematocrit 25.7, platelet count 192,000. Sodium 150, potassium 3.6, chloride 122, BUN 35, creatinine 0.84, glucose 156, bicarbonate 21. Arterial blood gases are pending. IMAGING: Chest imaging has shown normal heart size, no interstitial edema. ASSESSMENT: 1. The primary problem requiring critical attention is acute respiratory failure - I will initiate mechanical ventilation, sedate with Propofol and check arterial blood gases. 2. GI bleeding - the duodenal ulcer has been cauterized at this point and GI is actively involved in the patient's care. We will continue to closely monitor hemoglobin and hematocrit levels. 3. Volume status - The patient appears to be hypovolemic at this point as her heart rate is up and her blood pressure is soft. We will place a central line and obtain a central venous pressure to guide fluid administration as she has been aggressively fluid resuscitated to this point. 4. DVT prophylaxis will be addressed sequential holds as she is not a candidate for anticoagulation therapy. 5. We will facilitate glycemic control with fingerstick blood sugars and coverage. CONDITION: The patients condition is quite critical. PROGNOSIS: Guarded. One hour and thirty-seven minutes spent in the provision of bedside critical care and coordination in excess of any time spent performing procedures. JASPALD
--- NOTE | 2019-11-30 14:03 | CCN ---
DATE: 11/30/2019 SUBJECTIVE: The patient is seen in the Intensive Care Unit, intubated, mechanically ventilated, and critically ill. This is hospital day #6, postop day #1. At bedside, she is ill appearing. Some myoclonus was noted through the night which has now settled with reinstitution of valproate. PHYSICAL EXAMINATION: Her temperature is 98, pulse rate 106, respirations 18, blood pressure 97/54. I and O for the past 24 hours was 4858 in and 550 out, since midnight 1420 in and 125 out. Central venous pressure measures 11. She is ill appearing. Oral mucosa is pink. Endotracheal tube is at 20 cm. NG tube is in good position. Drainage is clear now. The neck is supple. Heart sounds are regular without appreciable murmur. Breath sounds are, of course, clear. No focal sounds. Abdomen is soft. No appreciable bowel sounds. Extremities are cool. Pulses diminished. DIAGNOSTIC STUDIES: Diagnostic studies were reviewed. Her sodium was 152, potassium 3.5, chloride 124, CO2 23, BUN 34, creatinine 1.16, glucose 123. White cell count is down to 23.6, hemoglobin 8.5, hematocrit 25.6, platelet count down to 90. Arterial blood gases show a pH of 7.43, pCO2 30, pO2 166. AST 14, ALT 15, albumin 1.6, magnesium 1.7. Fibrinogen has dropped slightly at 197. PT 16, PTT 29. Chest imaging shows essentially no change from prior. Microbiology studies were reviewed. Urine culture showed E. coli on 11/24. MEDICATIONS: On medications review, this is day #3 of Zosyn. Vancomycin was started in the night. ASSESSMENT/PLAN: The primary problem requiring critical attention is acute respiratory failure. Based on her blood gases, we will proceed with weaning and extubation if possible. Hypovolemia: Her CVP is now 11. She has been fluid resuscitated. Her blood pressure is better. GI bleeding: There is no active bleeding at this point. We will continue close monitoring given the extent of the ulcer described by GI. Coagulopathy: Her PT and INR are within range. Fibrinogen is low as are platelets. I am concerned that she may have a low grade DIC. Will continue close monitoring in the absence of active bleeding. DVT prophylaxis is being addressed with sequential hose. Ulcer therapy is being addressed with high dose Protonix. GI is following. The patient's condition remains critical. Prognosis is guarded. One hour and 36 minutes was spent in provision of bedside critical care and coordination in excess of any procedure time. ZELALEM
[2019-11-30] MEDS: KCL 40MEQ IN D5/0.45NS 1000ML 1,000 ML IV SCH (14:58)
[2019-11-30 17:17] LABS: HEMATOCRIT 26.3 % (36.0-47.0); HEMOGLOBIN 8.8 g/dl (12.0-15.5); MEAN CORPUSCULAR HEMOGLOBIN 31.2 pg (27.0-33.0); MEAN CORPUSCULAR HGB CONC 33.5 g/dl (32.0-36.5); MEAN CORPUSCULAR VOLUME 93.3 fl (80.0-96.0); RED BLOOD COUNT 2.82 10^6/uL (4.00-5.40); WHITE BLOOD COUNT 15.6 10^3/uL (4.0-10.0)
[2019-11-30 17:31] LABS: PLATELET COUNT, AUTOMATED 83 10^3/uL (150-450)
[2019-11-30] MEDS ORDERED: MIDAZOLAM HCL 100 MG in D5W 80 ML IV SCH (18:00)
[2019-11-30 18:27] LABS: HEMATOCRIT 26.5 % (36.0-47.0); MEAN CORPUSCULAR HEMOGLOBIN 31.4 pg (27.0-33.0); MEAN CORPUSCULAR VOLUME 92.3 fl (80.0-96.0); RED BLOOD COUNT 2.87 10^6/uL (4.00-5.40); WHITE BLOOD COUNT 15.6 10^3/uL (4.0-10.0)
[2019-11-30 18:29] LABS: PLATELET COUNT, AUTOMATED 93 10^3/uL (150-450)
[2019-11-30 18:37] LABS: INR 1.24; PROTHROMBIN TIME 15.9 SECONDS (11.8-14.0)
[2019-11-30] MEDS: KCL 20MEQ IN D5W 1000ML 1,000 ML IV SCH (18:41)
[2019-11-30 19:00] LABS: BLOOD UREA NITROGEN 29 MG/DL (7-18); CALCIUM LEVEL 6.9 MG/DL (8.8-10.2); CARBON DIOXIDE LEVEL 24 MEQ/L (21-32); CHLORIDE LEVEL 125 MEQ/L (98-107); CREATININE FOR GFR 0.86 MG/DL (0.55-1.30); GLOMERULAR FILTRATION RATE > 60.0 (>39); GLUCOSE, FASTING 82 MG/DL (70-100); MAGNESIUM LEVEL 2.2 MG/DL (1.8-2.4); SODIUM LEVEL 151 MEQ/L (136-145)
[2019-11-30] MEDS ORDERED: PHYTONADIONE 10MG/ML INJECTION (J3430) SC ONE (19:15)
--- NOTE | 2019-11-30 19:23 | CR.PDOC ---
General Date of Consultation: Nov 30, 2019 Consultation REASON FOR CONSULTATION/CHIEF COMPLAINT: [active bleeding ]. HISTORY OF PRESENT ILLNESS: [74 year old lady admitted with upper gi bleed Patient since admission required 13 units of blood and two units of FFp UGI found large ulcer review of home significant aspirin Review of labs significant elevated elevated PT, INR low fibrinogen and low platelets patent's hemoglobin stable today ]. ALLERGIES: Please see below. HOME MEDICATIONS: Please see below. PAST MEDICAL HISTORY: 1. [alzheimers ]. 2. hypertension 3. GERD 4. Arthritis ]. PAST SURGICAL HISTORY: 1. 2. FAMILY HISTORY: Father: Mother: Siblings: Children: Hereditary Diseases: Unexpected deaths due to medical reasons: SOCIAL HISTORY: Marital status and/or living arrangements: Children: Employment: Tobacco use:[smoking history ] ETOH: Illicit drug use: IV drug use: Other relevant social factors: REVIEW OF SYSTEMS: CONSTITUTIONAL: [ patient not speaking at the time of my exam ]. HEENT: [atraumatic ]. CARDIOVASCULAR: [ ]. RESPIRATORY: . GENITOURINARY: . MUSCULOSKELETAL: . GASTROINTESTINAL: . SKIN: . NEUROLOGICAL: . PSYCHIATRIC: . ENDOCRINE: . HEMATOLOGIC/LYMPHATIC: . ALLERGIC/IMMUNOLOGIC: . PHYSICAL EXAMINATION: VITAL SIGNS: Please see below. GENERAL APPEARANCE: [somnolent extubated ]. HEENT: atraumatic RESPIRATORY: bilateral lung sounds no wheeze, no rale s]. CARDIOVASCULAR: [regular rhythm . ABDOMEN: [soft ]. EXTREMITIES: [right arm looked swollen ]. NEUROLOGICAL: . PSYCHIATRIC: . LABORATORY DATA: Please see below. ASSESSMENT/PLAN: 1. [upper gastrointestinal bleed , gastric ulcer ]. 2. [elevated INTR 3. low platelets 4. low fibrinogen Plan: hemoglobin no stable suggest give vitamin K check factor seven level in am check INR in AM Vital Signs/I&O Vital Signs Date Time Temp Pulse Resp B/P (MAP) Pulse Ox O2 Delivery O2 Flow Rate FiO2 11/30/19 18:00 119/55 (76) 100 Venturi Mask 5.0 28 11/30/19 16:00 86 16 11/30/19 08:27 97.5 I&O- Last 24 Hours up to 6 AM 11/30/19 06:00 Intake Total 6932 ml Output Total 750 ml Balance 6182 ml Laboratory Data Labs 24H Laboratory Tests 2 11/29/19 22:27: Nucleated Red Blood Cells % (auto) 0.3H, Anion Gap 6L, Glomerular Filtration Rate 54.2, Calcium Level 6.1L 11/30/19 00:48: Urine Color YELLOW, Urine Appearance CLOUDYH, Urine pH 5.0, Urine Specific [place] 1.029, Urine Protein NEGATIVE, Urine Glucose (UA) 1+H, Urine Ketones NEGATIVE, Urine Blood 2+H, Urine Nitrite NEGATIVE, Urine Bilirubin NEGATIVE, Urine Urobilinogen 0.2, Urine Leukocyte Esterase NEGATIVE, Urine WBC (Auto) 9H, Urine RBC (Auto) 22H, Urine Hyaline Casts (Auto) 0, Urine Bacteria (Auto) NEGATIVE, Urine Squamous Epithelial Cells 0, Urine Sperm (Auto) 11/30/19 01:19: Nucleated Red Blood Cells % (auto) 0.3H, Immature Platelet Fraction 4.9, Prothrombin Time 15.6H, Prothromb Time International Ratio 1.21, Activated Partial Thromboplast Time 21.8L, Lactic Acid Level 2.1*H, Valproic Acid (Depakene) Level 3.2L 11/30/19 04:57: Anion Gap 5L, Glomerular Filtration Rate 48.9, Calcium Level 6.7L, Prothrombin Time 16.7H, Prothromb Time International Ratio 1.32, Activated Partial Thromboplast Time 29.5, Lactic Acid Level 1.6, Fibrinogen 197L, Blood Gas Bicarbonate Standard 21.5L, Arterial Blood pH 7.436, Arterial Blood Partial Pressure CO2 30.4L, Arterial Blood Partial Pressure O2 166.6H, Arterial Blood Total CO2 20.9L, Arterial Blood HCO3 20.0L, Arterial Blood Base Excess -3.6L, Arterial Blood Oxygen Saturation 98.9, Phosphorus Level 2.5, Magnesium Level 1.7L, Total Bilirubin 0.5, Aspartate Amino Transf (AST/SGOT) 14, Alanine A minotransferase (ALT/SGPT) 15, Alkaline Phosphatase 37L, Lactate Dehydrogenase 153, Total Creatine Kinase 42, Total Protein 3.8L, Albumin 1.6L, Albumin/Globulin Ratio 0.7L, Triglycerides Level 156H, Cholesterol Level 81, Helicobacter pylori IgG Antibody NEGATIVE 11/30/19 06:00: Immature Granulocyte % (Auto) 3.2H, Neutrophils (%) (Auto) 76.9H, Lymphocytes (%) (Auto) 9.6L, Monocytes (%) (Auto) 9.3H, Eosinophils (%) (Auto) 0.6, Basophils (%) (Auto) 0.4, Neutrophils # (Auto) 13.9H, Lymphocytes # (Auto) 1.7, Monocytes # (Auto) 1.7H, Eosinophils # (Auto) 0.1, Basophils # (Auto) 0.1, Nucleated Red Blood Cells % (auto) 0.6H 11/30/19 11:09: Anion Gap 4L, Glomerular Filtration Rate 58.0, Calcium Level 6.8L, Magnesium Level 2.1 11/30/19 17:00: Nucleated Red Blood Cells % (auto) 0.6H 11/30/19 17:15: Bedside Glucose (Misc Panel) 92 11/30/19 18:10: Nucleated Red Blood Cells % (auto) 0.5H, Prothrombin Time 15.9H, Prothromb Time International Ratio 1.24, Anion Gap 2L, Glomerular Filtration Rate > 60.0, Calcium Level 6.9L, Magnesium Level 2.2 CBC/BMP Laboratory Tests 11/29/19 22:27 11/30/19 01:19 11/30/19 04:57 11/30/19 06:00 11/30/19 11:09 11/30/19 17:00 11/30/19 18:10 Microbiology Microbiology 11/30/19 Blood Culture, Received Pending 11/30/19 Blood Culture, Received Pending 11/28/19 Stool Occult Blood (KATHY) - Final, Complete 11/25/19 Urine Culture - Final, Complete Escherichia Coli 11/25/19 Blood Culture - Final, Complete NO GROWTH AFTER 5 DAYS Allergies Coded Allergies: Quinolones (Verified Allergy, Unknown, 11/24/19) hydrocodone (Verified Allergy, Unknown, 11/24/19) levofloxacin (Verified Allergy, Unknown, 11/24/19) oxycodone (Verified Allergy, Unknown, 11/24/19) Home Medications Scheduled Aspirin (Aspirin EC) 81 Mg Tab, 81 MG PO QHS, (Reported) Cholecalciferol (Vitamin D3) (Vitamin D3) 25 Mcg Capsule, 1,000 UNITS PO QHS, (Reported) Clobetasol Propionate (Temovate) 15 Gm Oint...g., 1 DOSE TOP QHS, (Reported) APPLY TO VULVA Divalproex Sodium (Divalproex Sodium) 250 Mg Tablet.dr, 250 MG PO QHS, (Reported) Furosemide (Furosemide) 20 Mg Tablet, 20 MG PO QAM, (Reported) Memantine HCl (Namenda Xr) 28 Mg Cap, 28 CAP PO QHS, (Reported) Multivitamins (Thera M Plus Tablet) 1 Each Tablet, 1 TAB PO QHS, (Reported) Quetiapine Fumarate (Quetiapine Fumarate) 50 Mg Tab, 50 MG PO QHS, (Reported) Quetiapine Fumarate (Seroquel) 25 Mg Tablet, 25 MG PO QAM, (Reported) Sennosides/Docusate Sodium (Senna Plus Tablet) 1 Each Tablet, 1 TAB PO QHS, (Reported) Sertraline HCl (Sertraline HCl) 50 Mg Tab, 50 MG PO QHS, (Reported) Scheduled PRN Acetaminophen (Acetaminophen) 325 Mg Tablet, 650 MG PO Q4H PRN for PAIN / FEVER, (Reported) Bisacodyl (Dulcolax) 10 Mg Supp.rect, 10 MG ID DAILY PRN for CONSTIPATION, (R eported) Magnesium Hydroxide (Milk of Magnesia) 400 Mg/5 Ml Oral.susp, 30 ML PO DAILY PRN for CONSTIPATION, (Reported) Sodium Phosphate,Cabell-Dibasic (Enema) 133 Ml Enema, 1 ANTONIO ID DAILY PRN for CONSTIPATION, (Reported) Triamcinolone Acet (Triamcinolone Acetonide 0.1% Oint) 15 Gm Oint...g., 1 DOSE TOP BID PRN for dermititis, (Reported) MARIANA ALONSO MD Nov 30, 2019 19:23
[2019-11-30] MEDS: SERTRALINE HCL 50 MG TAB PO SCH (20:44)
[2019-11-30] MEDS: SENOKOT S TAB PO SCH (20:44)
[2019-11-30] MEDS: VITAMIN D 1,000 INTERNATIONAL UNITS TABLET PO SCH (20:44)
[2019-11-30] MEDS: QUEtiapine FUMARATE 50 MG TAB PO SCH (20:44)
[2019-11-30] MEDS: MULTIVITAMINS/MINERALS THERAP 1 TAB PO SCH (20:44)
[2019-11-30] MEDS: CLOBETASOL PROP 0.05% OINT 30 GM TOP SCH (21:13)
[2019-12-01] VITALS (12 sets, daily range): BP systolic 94–114; BP diastolic 52–73
[2019-12-01 00:43] LABS: HEMATOCRIT 25.9 % (36.0-47.0); HEMOGLOBIN 8.6 g/dl (12.0-15.5); MEAN CORPUSCULAR HEMOGLOBIN 31.5 pg (27.0-33.0); MEAN CORPUSCULAR HGB CONC 33.2 g/dl (32.0-36.5); MEAN CORPUSCULAR VOLUME 94.9 fl (80.0-96.0); RED BLOOD COUNT 2.73 10^6/uL (4.00-5.40); WHITE BLOOD COUNT 14.2 10^3/uL (4.0-10.0)
[2019-12-01 00:49] LABS: PLATELET COUNT, AUTOMATED 89 10^3/uL (150-450)
[2019-12-01 01:18] LABS: BLOOD UREA NITROGEN 26 MG/DL (7-18); CALCIUM LEVEL 6.7 MG/DL (8.8-10.2); CARBON DIOXIDE LEVEL 24 MEQ/L (21-32); CHLORIDE LEVEL 125 MEQ/L (98-107); CREATININE FOR GFR 0.81 MG/DL (0.55-1.30); GLOMERULAR FILTRATION RATE > 60.0 (>39); GLUCOSE, FASTING 77 MG/DL (70-100); POTASSIUM SERUM 3.5 MEQ/L (3.5-5.1); SODIUM LEVEL 152 MEQ/L (136-145); VANCOMYCIN LEVEL TROUGH 11.2 UG/ML (10.0-20.0)
[2019-12-01] MEDS: VANCOMYCIN HCL 1,000 MG, VIAL MATE ADAPTER 1 EACH in D5W 250 ML IV SCH ×3 (02:00→18:57)
[2019-12-01 04:29] LABS: BASO % 0.3 % (0.0-1.0); EOS # 0.3 10^3/uL (0.0-0.5); EOS % 2.1 % (0.0-3.0); HEMATOCRIT 25.9 % (36.0-47.0); HEMOGLOBIN 8.7 g/dl (12.0-15.5); LYMPH # 1.6 10^3/uL (1.5-5.0); LYMPH % 11.8 % (24.0-44.0); MEAN CORPUSCULAR HEMOGLOBIN 31.3 pg (27.0-33.0); MEAN CORPUSCULAR HGB CONC 33.6 g/dl (32.0-36.5); MEAN CORPUSCULAR VOLUME 93.2 fl (80.0-96.0); MONO % 7.1 % (0.0-5.0); NEUTROPHILS # 10.3 10^3/uL (1.5-8.5); NEUTROPHILS % 76.5 % (36.0-66.0); RED BLOOD COUNT 2.78 10^6/uL (4.00-5.40); WHITE BLOOD COUNT 13.4 10^3/uL (4.0-10.0)
[2019-12-01 04:30] LABS: PLATELET COUNT, AUTOMATED 92 10^3/uL (150-450)
[2019-12-01 04:38] LABS: INR 1.19; PROTHROMBIN TIME 15.3 SECONDS (11.8-14.0)
[2019-12-01 04:49] LABS: ALBUMIN 1.6 GM/DL (3.2-5.2); ALT/SGPT 14 U/L (12-78); BILIRUBIN,TOTAL 0.5 MG/DL (0.2-1.0); BLOOD UREA NITROGEN 22 MG/DL (7-18); CARBON DIOXIDE LEVEL 26 MEQ/L (21-32); CHLORIDE LEVEL 123 MEQ/L (98-107); CHOLESTEROL LEVEL 82 MG/DL (< 200); CPK CREATINE PHOSPHOKINASE 58 U/L (26-192); CREATININE FOR GFR 0.77 MG/DL (0.55-1.30); GLOMERULAR FILTRATION RATE > 60.0 (>39); GLUCOSE, FASTING 97 MG/DL (70-100); LDH LACTATE DEHYDROGENASE 200 U/L (84-246); PHOSPHORUS LEVEL 1.6 MG/DL (2.5-4.9); POTASSIUM SERUM 3.3 MEQ/L (3.5-5.1); SODIUM LEVEL 151 MEQ/L (136-145); TOTAL PROTEIN 3.9 GM/DL (6.4-8.2); TRIGLYCERIDES LEVEL 136 MG/DL (<150)
[2019-12-01 05:01] LABS: CLOSTRIDIUM DIFFICILE PCR NEGATIVE (NEGATIVE)
[2019-12-01] MEDS: PIPERACILLIN/TAZOBACTAM SOD 3.375 GM in D5W MINI-BAG PLUS 50 ML IV SCH ×4 (05:36→23:21)
[2019-12-01] MEDS: MEMANTINE 5MG TABLET (NAMENDA) PO SCH ×2 (07:45→21:00)
[2019-12-01] MEDS: QUEtiapine FUMARATE 25 MG TAB PO SCH (07:46)
[2019-12-01] MEDS ORDERED: POTASSIUM PHOSPHATE INJ 20 MMOL in D5W 250 ML IV ONE (09:00)
--- NOTE | 2019-12-01 09:00 | IPNPDOC ---
Text Note Date of Service The patient was seen on 12/01/19. NOTE Subjective: Patient is a 74 year old female with a PMHx of Alzheimer's / Vascular dementia, HTN, DLP, Anxiety, Osteoporosis, GERD (Gastritis / Duodenitis), Hx of Hemorrhoids / Diverticulosis, who presented to the ER after she had a chocking episode at [facility]. Heimlich maneuver was performed and patient developed hematemesis and was transferred. Patient was admitted to the hospitalist service and surgery was called on consultation. On 11/27-11/28 night patient was noted to have further hematemesis with clots, as well as dark colored stool. Discussed with 3 children on the morning of 11/28 about goals of care. Patient still remains DNR / DNI; family would like to proceed with EGD. Consulted Dr. Monroy for EGD that was performed on the afternoon of 11/28. Patient was seen and examined at the bedside. Currently is not oriented, responds to painful stimuli, does not follow commands. Objective: Vitals (See below) General: Lying in bed, appears comfortable HEENT: NC, AT, +NG tube CVS: RRR, +S1S2 Lungs: Fair air entry b/l, auscultation is without wheezing / rhonchi / rales Abdomen: Soft, without distention / tenderness Extremities: No edema of LE, - Calf tenderness Assessment and plan: s/p Ventilator dependent respiratory failure - Intubated on 11/28; Extubated on 11/29 - Patient is DNR / DNI; will not re-intubate - Pulmonary on consultation; appreciate their input Acute Metabolic Encephalopathy; possibly 2/2 infectious etiology, possibly 2/2 Delirium on Dementia, - History of dementia, but is usually awake and participatory in the senior living; usually oriented to self - Patient remains minimally responsive - See below Leukocytosis - possibly 2/2 UTI, possibly 2/2 intra-abdominal infection - Improving - Afebrile - UA reviewed; consistent with infection - Repeat blood cultures 11/29: Negative at 24 hours - Blood cultures 11/24: No growth at 5 days - Urine culture 11/24: E. Coli - MRSA screen positive - CTA chest 11/24: The limits of this examination given both motion and artifact from the patient's arm there is no obvious evidence of pulmonary emboli. Possible pneumonitis, mild if real. Also be chronic interstitial changes. - CT abdomen/pelvis 11/24: 1. Very limited evaluation due to artifact. 2. Renal hypo-densities which cannot be determined as the Bosniak classification due to artifact. 3. Gastric antral wall thickening? 4. Retained feces. 5. T12 compression fracture of unknown age. 6. Possible panniculitis. 7. Possible pneumonitis. - c/w Zosyn (Day #7); Vancomycin added overnight (Day #2) Acute blood loss anemia - likely 2/2 bleeding duodenal ulcer (s/p Clip, Cauterization, Epinephrine) - Tachycardia has resolved; remains hemodynamically stable - s/p 2 units PRBC on 11/24 - s/p 2 units PRBC on 11/27 - s/p 7 units PRBC and 2 units FFP on 11/28 - s/p 2 units PRBC on 11/29 - Hg appears to remain stable - Will continue to follow trend - Dr. Monroy (GI) on consultation; s/p EGD on 11/28 s/p Hypokalemia - c/w supplemented IV fluids with potassium Hypernatremia - c/w D5W - Repeat BMP at 2PM Choking episode - likely 2/2 worsening of her dementia - c/w HOB elevation at 30 degrees, aspiration precautions, continuous pulse ox - Remains NPO - c/w IV fluids - Speech therapy for swallow evaluation - Reviewed MOLST and discussed with family; No PEG tube Alzheimers / Vascular Dementia - Patient is reported to be oriented only to person while at [place] - Currently responds to painful stimuli only - Discussed with family about natural progression of Dementia Chronic HTN - BP improved - BP medications on hold Lichen sclerosis - c/w clobetasol GI prophylaxis - c/w Protonix DVT prophylaxis - c/w TEDs/Sequentials (Re: acute blood loss) Disposition: - Will discuss with family goals of care and likely downgrade from ICU today VS,Dannybone, I+O VS, Fishbone, I+O Laboratory Tests 11/30/19 11:09 11/30/19 17:00 11/30/19 18:10 12/01/19 00:13 12/01/19 00:25 12/01/19 04:15 Vital Signs Date Time Temp Pulse Resp B/P (MAP) Pulse Ox O2 Delivery O2 Flow Rate FiO2 12/01/19 06:00 81 22 114/56 (75) 22 Room Air 12/01/19 04:00 97.1 12/01/19 03:00 5.0 28 I&O- Last 24 Hours up to 6 AM 12/01/19 06:00 Intake Total 2508.0 ml Output Total 1790 ml Balance 718.0 ml MARLON DEGROOT MD Dec 01, 2019 09:00
[2019-12-01] MEDS: PANTOPRAZOLE 40MG VIAL (C9113 PER 1) IV SCH ×2 (09:49→21:31)
[2019-12-01 14:18] LABS: BASO % 0.2 % (0.0-1.0); EOS # 0.3 10^3/uL (0.0-0.5); EOS % 2.6 % (0.0-3.0); HEMATOCRIT 26.7 % (36.0-47.0); HEMOGLOBIN 8.8 g/dl (12.0-15.5); LYMPH # 1.2 10^3/uL (1.5-5.0); LYMPH % 11.1 % (24.0-44.0); MONO # 0.8 10^3/uL (0.0-0.8); MONO % 7.5 % (0.0-5.0); NEUTROPHILS # 8.5 10^3/uL (1.5-8.5); RED BLOOD COUNT 2.84 10^6/uL (4.00-5.40); WHITE BLOOD COUNT 11.1 10^3/uL (4.0-10.0)
[2019-12-01 14:32] LABS: PLATELET COUNT, AUTOMATED 91 10^3/uL (150-450)
[2019-12-01 14:54] LABS: BLOOD UREA NITROGEN 12 MG/DL (7-18); CALCIUM LEVEL 7.4 MG/DL (8.8-10.2); CARBON DIOXIDE LEVEL 27 MEQ/L (21-32); CHLORIDE LEVEL 119 MEQ/L (98-107); GLOMERULAR FILTRATION RATE > 60.0 (>39); GLUCOSE, FASTING 85 MG/DL (70-100); POTASSIUM SERUM 3.2 MEQ/L (3.5-5.1); SODIUM LEVEL 148 MEQ/L (136-145)
[2019-12-01] MEDS: KCL 20MEQ IN 100ML SWI (KRUN) 20 MEQ in IV 1 EA IV SCH ×4 (15:50→16:50)
[2019-12-01] MEDS: KCL 20MEQ IN D5W 1000ML 1,000 ML IV SCH (15:52)
[2019-12-01] MEDS: VITAMIN D 1,000 INTERNATIONAL UNITS TABLET PO SCH (21:00)
[2019-12-01] MEDS: QUEtiapine FUMARATE 50 MG TAB PO SCH (21:00)
[2019-12-01] MEDS: SENOKOT S TAB PO SCH (21:00)
[2019-12-01] MEDS: MULTIVITAMINS/MINERALS THERAP 1 TAB PO SCH (21:00)
[2019-12-01] MEDS: SERTRALINE HCL 50 MG TAB PO SCH (21:00)
[2019-12-01] MEDS: VALPROATE SOD INJ 250 MG in D5W 50 ML IV SCH (21:32)
[2019-12-01] MEDS: CLOBETASOL PROP 0.05% OINT 30 GM TOP SCH (21:33)
[2019-12-01 22:38] LABS: HEMATOCRIT 26.5 % (36.0-47.0); HEMOGLOBIN 8.8 g/dl (12.0-15.5); MEAN CORPUSCULAR HEMOGLOBIN 31.2 pg (27.0-33.0); MEAN CORPUSCULAR HGB CONC 33.2 g/dl (32.0-36.5); PLATELET COUNT, AUTOMATED 101 10^3/uL (150-450); RED BLOOD COUNT 2.82 10^6/uL (4.00-5.40); WHITE BLOOD COUNT 10.7 10^3/uL (4.0-10.0)
[2019-12-01 22:55] LABS: BLOOD UREA NITROGEN 8 MG/DL (7-18); CALCIUM LEVEL 7.5 MG/DL (8.8-10.2); CARBON DIOXIDE LEVEL 27 MEQ/L (21-32); CHLORIDE LEVEL 117 MEQ/L (98-107); CREATININE FOR GFR 0.56 MG/DL (0.55-1.30); GLOMERULAR FILTRATION RATE > 60.0 (>39); GLUCOSE, FASTING 81 MG/DL (70-100); MAGNESIUM LEVEL 1.9 MG/DL (1.8-2.4); PHOSPHORUS LEVEL 2.2 MG/DL (2.5-4.9); POTASSIUM SERUM 3.5 MEQ/L (3.5-5.1); SODIUM LEVEL 146 MEQ/L (136-145)
[2019-12-02] VITALS (10 sets, daily range): BP systolic 62–129; BP diastolic 40–76
[2019-12-02] MEDS ORDERED: POTASSIUM PHOSPHATE INJ 20 MMOL in D5W 250 ML IV ONE (01:00)
[2019-12-02] MEDS: VANCOMYCIN HCL 1,000 MG, VIAL MATE ADAPTER 1 EACH in D5W 250 ML IV SCH (02:51)
[2019-12-02] MEDS: PIPERACILLIN/TAZOBACTAM SOD 3.375 GM in D5W MINI-BAG PLUS 50 ML IV SCH (05:03)
[2019-12-02 05:28] LABS: BASO % 0.3 % (0.0-1.0); EOS # 0.3 10^3/uL (0.0-0.5); EOS % 3.6 % (0.0-3.0); HEMATOCRIT 25.9 % (36.0-47.0); HEMOGLOBIN 8.3 g/dl (12.0-15.5); LYMPH # 1.1 10^3/uL (1.5-5.0); LYMPH % 12.7 % (24.0-44.0); MEAN CORPUSCULAR HEMOGLOBIN 30.4 pg (27.0-33.0); MEAN CORPUSCULAR VOLUME 94.9 fl (80.0-96.0); MONO # 0.7 10^3/uL (0.0-0.8); MONO % 8.4 % (0.0-5.0); NEUTROPHILS # 6.4 10^3/uL (1.5-8.5); NEUTROPHILS % 73.4 % (36.0-66.0); RED BLOOD COUNT 2.73 10^6/uL (4.00-5.40); WHITE BLOOD COUNT 8.8 10^3/uL (4.0-10.0)
[2019-12-02 05:31] LABS: PLATELET COUNT, AUTOMATED 97 10^3/uL (150-450)
[2019-12-02 05:50] LABS: ALBUMIN 1.7 GM/DL (3.2-5.2); ALT/SGPT 32 U/L (12-78); BILIRUBIN,TOTAL 0.7 MG/DL (0.2-1.0); BLOOD UREA NITROGEN 6 MG/DL (7-18); CALCIUM LEVEL 6.9 MG/DL (8.8-10.2); CARBON DIOXIDE LEVEL 28 MEQ/L (21-32); CHLORIDE LEVEL 115 MEQ/L (98-107); CREATININE FOR GFR 0.59 MG/DL (0.55-1.30); GLOMERULAR FILTRATION RATE > 60.0 (>39); GLUCOSE, FASTING 84 MG/DL (70-100); MAGNESIUM LEVEL 1.9 MG/DL (1.8-2.4); POTASSIUM SERUM 3.4 MEQ/L (3.5-5.1); SODIUM LEVEL 145 MEQ/L (136-145); TOTAL PROTEIN 4.2 GM/DL (6.4-8.2)
[2019-12-02] MEDS ORDERED: KCL 20MEQ IN 100ML SWI (KRUN) 20 MEQ in IV 1 EA IV ONE ×2 (07:15)
[2019-12-02] MEDS: PANTOPRAZOLE 40MG VIAL (C9113 PER 1) IV SCH (08:49)
[2019-12-02] MEDS: MEMANTINE 5MG TABLET (NAMENDA) PO SCH ×2 (08:49→21:00)
[2019-12-02] MEDS: QUEtiapine FUMARATE 25 MG TAB PO SCH (08:49)
[2019-12-02 09:47] LABS: ALBUMIN 1.8 GM/DL (3.2-5.2); ALT/SGPT 34 U/L (12-78); BILIRUBIN,TOTAL 0.9 MG/DL (0.2-1.0); BLOOD UREA NITROGEN 6 MG/DL (7-18); CALCIUM LEVEL 7.4 MG/DL (8.8-10.2); CARBON DIOXIDE LEVEL 28 MEQ/L (21-32); CHLORIDE LEVEL 115 MEQ/L (98-107); CREATININE FOR GFR 0.62 MG/DL (0.55-1.30); GLOMERULAR FILTRATION RATE > 60.0 (>39); GLUCOSE, FASTING 77 MG/DL (70-100); MAGNESIUM LEVEL 1.9 MG/DL (1.8-2.4); POTASSIUM SERUM 3.8 MEQ/L (3.5-5.1); SODIUM LEVEL 148 MEQ/L (136-145); TOTAL PROTEIN 4.5 GM/DL (6.4-8.2); VANCOMYCIN LEVEL TROUGH 21.1 UG/ML (10.0-20.0)
--- NOTE | 2019-12-02 10:28 | IPNPDOC ---
Text Note Date of Service The patient was seen on 12/02/19. NOTE Subjective: Patient is a 74 year old female with a PMHx of Alzheimer's / Vascular dementia, HTN, DLP, Anxiety, Osteoporosis, GERD (Gastritis / Duodenitis), Hx of Hemorrhoids / Diverticulosis, who presented to the ER after she had a chocking episode at [facility]. Heimlich maneuver was performed and patient developed hematemesis and was transferred. Patient was admitted to the hospitalist service and surgery was called on consultation. On 11/27-11/28 night patient was noted to have further hematemesis with clots, as well as dark colored stool. Discussed with 3 children on the morning of 11/28 about goals of care. Patient still remains DNR / DNI; family would like to proceed with EGD. Consulted Dr. Monroy for EGD that was performed on the afternoon of 11/28. Patient was seen and examined at the bedside. Patient is able to answer simple questions she is oriented to person. Objective: Vitals (See below) General: Lying in bed, appears comfortable, oriented to person this morning HEENT: NC, AT CVS: RRR, +S1S2 Lungs: Fair air entry b/l, there does not appear to be any evidence of rhonchi crackles or wheezing Abdomen: Soft, palpation does not reveal any tenderness, and is without any distention Extremities: No edema of LE, - Calf tenderness Assessment and plan: s/p Ventilator dependent respiratory failure - Intubated on 11/28; Extubated on 11/29 - Patient is DNR / DNI; will not re-intubate -Pulmonary has signed off; appreciated their input s/p Acute Metabolic Encephalopathy; possibly 2/2 infectious etiology, possibly 2/2 Delirium on Dementia, - History of dementia, but is usually awake and participatory in the half-way; usually oriented to self - Currently patient is oriented to person - See below s/p Leukocytosis - possibly 2/2 UTI, possibly 2/2 intra-abdominal infection - Resolved - Afebrile - UA reviewed; consistent with infection - Repeat blood cultures 11/29: Negative at 48 hours - Blood cultures 11/24: No growth at 5 days - Urine culture 11/24: E. Coli - MRSA screen positive - CTA chest 11/24: The limits of this examination given both motion and artifact from the patient's arm there is no obvious evidence of pulmonary emboli. Possible pneumonitis, mild if real. Also be chronic interstitial changes. - CT abdomen/pelvis 11/24: 1. Very limited evaluation due to artifact. 2. Renal hypo-densities which cannot be determined as the Bosniak classification due to artifact. 3. Gastric antral wall thickening? 4. Retained feces. 5. T12 compression fracture of unknown age. 6. Possible panniculitis. 7. Possible pneumonitis. - Will DC Antibiotics; s/p Zosyn (Day #8); Vancomycin added overnight (Day #3) Acute blood loss anemia - likely 2/2 bleeding duodenal ulcer (s/p Clip, Cauterization, Epinephrine) - Hemodynamically stable; s/p Tachycardia - s/p 2 units PRBC on 11/24 - s/p 2 units PRBC on 11/27 - s/p 7 units PRBC and 2 units FFP on 11/28 - s/p 2 units PRBC on 11/29 - Hg has remained stable - Dr. Monroy (GI) on consultation; s/p EGD on 11/28 Hypokalemia - Again will supplement via IV route s/p Hypernatremia - c/w D5W Choking episode - likely 2/2 worsening of her dementia - c/w HOB elevation at 30 degrees, aspiration precautions, continuous pulse ox - Remains NPO - c/w IV fluids - Will have speech therapy re-evaluate today - Reviewed MOLST and discussed with family; No PEG tube Alzheimers / Vascular Dementia - Patient is reported to be oriented only to person while at [place]; currently appears to be at baseline - Discussed with family about natural progression of Dementia Chronic HTN - BP improved - BP medications on hold Lichen sclerosis - c/w clobetasol GI prophylaxis - c/w Protonix DVT prophylaxis - c/w TEDs/Sequentials (Re: acute blood loss) Disposition: - Will have swallow evaluation completed today VS,Abimbola, I+O VS, Dannybone, I+O Laboratory Tests 12/01/19 13:56 12/01/19 22:19 12/01/19 22:23 12/02/19 05:05 12/02/19 08:54 Vital Signs Date Time Temp Pulse Resp B/P (MAP) Pulse Ox O2 Delivery O2 Flow Rate FiO2 12/02/19 08:00 98.3 70 18 111/53 (72) 95 Room Air 12/01/19 03:00 5.0 28 I&O- Last 24 Hours up to 6 AM 12/02/19 05:59 Intake Total 1830 ml Output Total 2500 ml Balance -670 ml MARLON DEGROOT MD Dec 02, 2019 10:28
[2019-12-02] MEDS ORDERED: VANCOMYCIN HCL 750 MG, VIAL MATE ADAPTER 1 EACH in D5W 250 ML IV SCH (11:00)
[2019-12-02 20:48] LABS: HEMOGLOBIN 8.1 g/dl (12.0-15.5); MEAN CORPUSCULAR HEMOGLOBIN 31.4 pg (27.0-33.0); MEAN CORPUSCULAR HGB CONC 32.4 g/dl (32.0-36.5); MEAN CORPUSCULAR VOLUME 96.9 fl (80.0-96.0); PLATELET COUNT, AUTOMATED 132 10^3/uL (150-450); RED BLOOD COUNT 2.58 10^6/uL (4.00-5.40); WHITE BLOOD COUNT 13.2 10^3/uL (4.0-10.0)
[2019-12-02 20:57] LABS: INR 1.13; PROTHROMBIN TIME 14.7 SECONDS (11.8-14.0)
[2019-12-02] MEDS ORDERED: PANTOPRAZOLE 40MG VIAL (C9113 PER 1) IV SCH (21:00)
[2019-12-02] MEDS: SENOKOT S TAB PO SCH (21:00)
[2019-12-02] MEDS: VITAMIN D 1,000 INTERNATIONAL UNITS TABLET PO SCH (21:00)
[2019-12-02] MEDS: SERTRALINE HCL 50 MG TAB PO SCH (21:00)
[2019-12-02] MEDS: QUEtiapine FUMARATE 50 MG TAB PO SCH (21:00)
[2019-12-02] MEDS ORDERED: CLARITHROMYCIN 250 MG TAB PO SCH (21:00)
[2019-12-02] MEDS ORDERED: DIVALPROEX SPRINKLE 125 MG CAP PO SCH (21:00)
[2019-12-02] MEDS ORDERED: PANTOPRAZOLE 40MG TAB (PROTONIX) PO SCH (21:00)
[2019-12-02] MEDS: MULTIVITAMINS/MINERALS THERAP 1 TAB PO SCH (21:00)
[2019-12-02] MEDS ORDERED: AMOXICILLIN 500 MG CAP PO SCH (21:00)
[2019-12-02] MEDS ORDERED: SODIUM CHLORIDE 0.9% 1000ML IV ONE (21:30)
[2019-12-02 21:48] LABS: BLOOD UREA NITROGEN 5 MG/DL (7-18); CARBON DIOXIDE LEVEL 26 mmol/L (20-29); CHLORIDE LEVEL 115 MEQ/L (98-107); CREATININE FOR GFR 0.82 MG/DL (0.55-1.30); GLOMERULAR FILTRATION RATE > 60.0 (>39); GLUCOSE, FASTING 122 MG/DL (70-100); POTASSIUM SERUM 3.8 MEQ/L (3.5-5.1); SODIUM LEVEL 148 MEQ/L (136-145)
[2019-12-02 21:49] LABS: CALCIUM LEVEL 7.4 MG/DL (8.8-10.2)
[2019-12-03] VITALS: BP 97/52
[2019-12-03 00:45] VITALS: BP 110/62
[2019-12-03 00:57] VITALS: BP 110/62
--- NOTE | 2019-12-03 01:50 | IPNPDOC ---
Date Seen The patient was seen on 12/03/19. Progress Note SUBJECTIVE: We were notified later in the evening of patient having 500-600 cc of BRBPR with bowel movement, bleed believed to be 2/2 to lower GI source which is different from prior Upper GI bleed. Dr. Monroy (GI) discussed that patient would be unable to tolerate colonoscopy prep due to lower than normal blood pressure. Patient's blood pressure worsened on the floor with systolic in 60's, she was started on IVFs, 2 units PRBC, FFP and PLTs ordered. Later, she was transferred to ICU for close management. H/H was found to be 8.1/25, only slightly decreased from AM lab H/H of 8.3/25.9. PLTs were stable at 132. In ICU, BP ranged from 97-110/57-62 initially on IVFs. 2 units PRBC transfused with FFP and PLTs to follow, she has CV access. IVFs stopped with blood transfusing and BP holding MAP >65 mmHg. Patient appeared to be at her new baseline mentating, not cooperating or following commands but awake. Patient was unable to tell me if she had abdominal pain, shortness of breath, chest pain. OBJECTIVE PHYSICAL EXAMINATION: VITAL SIGNS: Please see below. GENERAL: Awake, not able to follow command and in NAD HEENT: AT/NC, slightly pale, PERRLA, moist oral mucosa CARDIOVASCULAR: S1S2 +, no M/R/G RESPIRATORY: CTAB, no W/R/R ABDOMINAL: soft, not showing signs of pain with palpation, nondistended, BS + in 4 quad EXTREMITIES: no edema, no cyanosis, no clubbing, pulses in all extremities strong INTEGUMENTARY: No rashes, open lesions : sanabria catheter in place NEUROLOGICAL: Awake, does not follow commands or communicate. No focal deficits LABORATORY DATA, IMAGING STUDIES, MICROBIOLOGY: Please see below. ASSESSMENT: 74 y/o F with recent acute respiratory failure extubated from ventilator after GI bleed 2/2 to duodenal ulcer s/p clipping, acute metabolic encephalopathy transferred to ICU for new acute GI bleed likely lower GI source. PLAN: 1. GI bleed, acute and likely lower GI source. -Recent EGD with diagnosis of bleeding duodenal ulcer (s/p Clip, Cauterization, Epinephrine) -S/p 2 Units PRBC overnight, to receive 1 FFP and platelets as well. Total PRBC this hospitalization INCLUDING 2 units this evenin units PRBC -No new BRBPR since admission to ICU but total of 500-600 mL bleeding 12/02/19 -NPO, BP holding without IVFs currently -F/u post transfusion CBC then CBC Q4H, daily labs (incl. calcium), tele -For every 2 units PRBC, give FFP and Platelets per GI. -Per GI (Dr. Monroy), no colonoscopy as patient could not tolerate prep, too unstable. 2. Hemorrhagic shock 2/2 to lower GI bleed. Resolved. -Resolved with IVFs prior to receiving PRBC -Tele, can restart IVF if needed 3. Acute blood loss anemia likely 2/2 multiple GI bleeds -Please see above. 4. Thrombocytopenia, acute. -present since 11/29/19 -to receive PLTs after transfusions -F/u CBC as scheduled 5. Acute Metabolic Encephalopathy 2/2 infectious etiology, Delirium on Dementia and acute GI bleeds - History of dementia, but is usually awake and participatory in the longterm; usually oriented to self -Currently patient is confused, not oriented to person -C/w treatment of individual issues as listed above, below 6. Leukocytosis possibly reactive to GI bleed, possibly 2/2 UTI, possibly 2/2 intra-abdominal infection per prior notes - Afebrile, WBC 13.2 - UA reviewed; consistent with infection - Repeat blood cultures 11/29: Negative at 48 hours - Blood cultures 11/24: No growth at 5 days - Urine culture 11/24: E. Coli - MRSA screen positive - CTA chest 11/24: The limits of this examination given both motion and artifact from the patient's arm there is no obvious evidence of pulmonary emboli. Possible pneumonitis, mild if real. Also be chronic interstitial changes. - CT abdomen/pelvis 11/24: 1. Very limited evaluation due to artifact. 2. Renal hypo-densities which cannot be determined as the Bosniak classification due to artifact. 3. Gastric antral wall thickening? 4. Retained feces. 5. T12 compression fracture of unknown age. 6. Possible panniculitis. 7. Possible pneumonitis. - Abx stopped by day team but had been treated with zosyn (8 days); Vancomycin (3 days) 7. Hypokalemia, acute -Treated with KCL in NSS IV at 100 cc/hr. -Holding while transfusing to eliminate possible dilution -F/u AM labs. 8. Hypernatremia, acute. -Previously on D5W, stopped this AM. -All fluids on hold currently. -Na 148 -F/u AM labs. 9. Ventilator dependent respiratory failure - Intubated on 11/28; Extubated on 11/29 - Patient is DNR / DNI; will not re-intubate -Pulmonary has signed off; appreciated their input 10. Choking episode likely 2/2 worsening of her dementia - c/w HOB elevation at 30 degrees, aspiration precautions, continuous pulse ox - NPO, holding fluids. - Speech therapy was to re-evaluate, no PEG per notes 11. Alzheimers / Vascular Dementia - Patient is reported to be oriented only to person while at [place]; currently appears to be at baseline - Primary attending discussed with family about natural progression of Dementia 12. GI prophylaxis - PPI IV BID 13. DVT prophylaxis - c/w TEDs/Sequentials (Re: acute blood loss) DISPOSITION: Transferred to ICU for close monitoring. Family was notified by myself and Dr. Monroy about current condition. They were also updated again when they came to ICU to see patient. She remains a DNR/DNI with limited medical interventions. VS, [facility] Signs/I&O Vital Signs Date Time Temp Pulse Resp B/P (MAP) Pulse Ox O2 Delivery O2 Flow Rate FiO2 12/03/19 00:57 97.0 90 34 110/62 99 2.0 12/03/19 00:00 Nasal Cannula 12/01/19 03:00 28 I&O- Last 24 Hours up to 6 AM 12/03/19 06:00 Intake Total 1177 ml Output Total 2185 ml Balance -1008 ml Laboratory Data 24H LABS Laboratory Tests 2 12/02/19 05:05: Immature Granulocyte % (Auto) 1.6, Neutrophils (%) (Auto) 73.4H, Lymphocytes (%) (Auto) 12.7L, Monocytes (%) (Auto) 8.4H, Eosinophils (%) (Auto) 3.6H, Basophils (%) (Auto) 0.3, Neutrophils # (Auto) 6.4, Lymphocytes # (Auto) 1.1L, Monocytes # (Auto) 0.7, Eosinophils # (Auto) 0.3, Basophils # (Auto) 0.0, Nucleated Red Blood Cells % (auto) 0.0, Immature Platelet Fraction 4.2, Anion Gap 2L, Glomeru lar Filtration Rate > 60.0, Calcium Level 6.9L, Magnesium Level 1.9, Total Bilirubin 0.7, Aspartate Amino Transf (AST/SGOT) 43H, Alanine Aminotransferase (ALT/SGPT) 32, Alkaline Phosphatase 55, Total Protein 4.2L, Albumin 1.7L, Albumin/Globulin Ratio 0.7L 12/02/19 08:54: Anion Gap 5L, Glomerular Filtration Rate > 60.0, Calcium Level 7.4L, Magnesium Level 1.9, Total Bilirubin 0.9, Aspartate Amino Transf (AST/SGOT) 48H, Alanine Aminotransferase (ALT/SGPT) 34, Alkaline Phosphatase 62, Total Protein 4.5L, Albumin 1.8L, Albumin/Globulin Ratio 0.7L, Vancomycin Level Trough 21.1H 12/02/19 20:34: Nucleated Red Blood Cells % (auto) 0.2H, Prothrombin Time 14.7H, Prothromb Time International Ratio 1.13 12/02/19 20:35: Anion Gap 7L, Glomerular Filtration Rate > 60.0, Calcium Level 7.4L CBC/BMP Laboratory Tests 12/02/19 05:05 12/02/19 08:54 12/02/19 20:34 12/02/19 20:35 Microbiology Microbiology 12/02/19 Respiratory Virus Panel (PCR) (KATHY) - Final, Complete 11/30/19 Blood Culture - Preliminary, Resulted No Growth after 48 hours. All Specime... 11/30/19 Blood Culture - Preliminary, Resulted No Growth after 48 hours. All Specime... 11/28/19 Stool Occult Blood (KATHY) - Final, Complete 11/25/19 Urine Culture - Final, Complete Escherichia Coli 11/25/19 Blood Culture - Final, Complete NO GROWTH AFTER 5 DAYS Current Medications Current Medications Medications (Trade) Dose Ordered Sig/Kendra Route PRN Reason Start Time Stop Time Status Last Admin Dose Admin Acetaminophen (Tylenol Tab) 650 mg Q4HP PRN PO PAIN / FEVER 11/24/19 22:15 Albuterol/ Ipratropium (Duoneb (Ipr 0.5mg/Alb 2.5mg)) 3 ml RQID NEB 11/29/19 20:00 11/30/19 08:17 DC 11/29/19 19:42 Amoxicillin (Amoxicillin) 500 mg BID PO 12/02/19 21:00 Ampicillin Sodium/ Sulbactam Sodium 1.5 gm/Dextrose 50 ml @ 100 mls/hr Q6H IV 11/27/19 10:00 11/27/19 10:03 DC Aspirin (Ecotrin) 81 mg QHS PO 11/24/19 22:15 11/25/19 02:07 DC Bisacodyl (Dulcolax Suppository) 10 mg DAILY PRN IN CONSTIPATION 11/24/19 22:15 Chlorhexidine Gluconate (Peridex Oral Rinse) SWAB/BRUSH ORAL CAVITY BID MT 11/29/19 21:00 11/30/19 10:02 DC 11/29/19 21:16 Clarithromycin (Biaxin) 500 mg BID PO 12/02/19 21:00 Clobetasol Propionate (Temovate 0.05%) APPLY TO VULVA DIRECTED QHS TOP 11/24/19 22:15 12/01/19 21:33 Dextrose (Dextrose 50%) 25 ml ASDIRECTED PRN IV SEE LABEL COMMENTS 11/27/19 10:45 Diatrizoate Meglum/ Diatrizoate Sod (Gastrografin) 10 ml Q30M PO 11/25/19 11:30 11/25/19 12:01 DC Divalproex Sodium (Depakote Sprinkles) 250 mg QHS PO 12/02/19 21:00 Divalproex Sodium (Depakote) 250 mg QHS PO 11/24/19 22:15 11/29/19 23:23 DC Furosemide (Lasix) 20 mg QAM PO 11/25/19 09:00 11/25/19 02:07 DC Glucagon (Glucagon) 1 mg ASDIRECTED PRN SC SEE LABEL COMMENTS 11/27/19 10:45 Glucose (Glucose) 16 GM ASDIRECTED PRN PO SEE LABEL COMMENTS 11/27/19 10:45 Home Med (Med Rec Complete!) ASDIRECTED XX 11/24/19 21:15 11/24/19 21:05 DC Magnesium Hydroxide (Milk Of Magnesia) 30 ml DAILY PRN PO CONSTIPATION 11/24/19 22:15 Memantine (Namenda) 10 mg BID PO 11/24/19 22:15 Midazolam HCl (Versed) 2 mg Q15MP PRN IV AGITATION 11/29/19 17:30 11/30/19 08:17 DC 11/30/19 05:49 Midazolam HCl 100 mg/Dextrose 100 ml @ 4 mls/hr Q24H IV 11/30/19 18:00 11/30/19 08:17 DC Midazolam HCl 50 mg/Dextrose 50 ml @ 4 mls/hr [id number] IV 11/29/19 18:15 11/30/19 06:49 DC 11/29/19 20:28 Midazolam HCl 50 mg/Dextrose 50 ml @ 4 mls/hr [id number] IV 11/30/19 07:00 11/30/19 08:17 DC Morphine Sulfate (Morphine Sulfate Inj) 1 mg Q4H PRN IV MODERATE PAIN (PS 5-7) 11/29/19 12:15 11/29/19 17:48 DC Multivitamins (Theragram-M) 1 tab QHS PO 11/24/19 22:15 Pantoprazole Sodium (Protonix) 40 mg BID IV 11/28/19 09:00 12/02/19 15:09 DC 12/02/19 08:49 Pantoprazole Sodium (Protonix) 40 mg BID PO 12/02/19 21:00 Pantoprazole Sodium (Protonix) 40 mg Q12H IV 11/24/19 21:00 11/27/19 09:31 DC 11/26/19 19:50 Piperacillin Sod/ Tazobactam Sod 2.25 gm/Dextrose 50 ml @ 100 mls/hr Q6H IV 11/27/19 10:00 11/27/19 10:11 DC Piperacillin Sod/ Tazobactam Sod 2.25 gm/Dextrose 50 ml @ 100 mls/hr Q8H IV 11/25/19 11:00 11/27/19 09:31 DC 11/27/19 03:40 Piperacillin Sod/ Tazobactam Sod 3.375 gm/Dextrose 50 ml @ 50 mls/hr Q6H IV 11/27/19 11:00 12/02/19 10:07 DC 12/02/19 05:03 Potassium Chloride 20 meq/ IV Miscellaneous Supplies 100 ml @ 100 mls/hr Q1H IV 12/01/19 16:00 12/01/19 17:59 DC 12/01/19 16:50 Potassium Chloride 40 meq/ Dextrose/Sodium Chloride 1,020 ml @ 50 mls/hr [id number] IV 11/29/19 11:15 11/29/19 11:20 DC Potassium Chloride 40 meq/ Sodium Chloride 1,020 ml @ 50 mls/hr [id number] IV 11/29/19 10:33 11/29/19 10:47 DC Potassium Chloride/Dextrose 1,000 ml @ 50 mls/hr Q20H IV 11/30/19 18:00 12/02/19 15:02 DC 12/01/19 15:52 Potassium Chloride/Dextrose/ Sod Cl 1,000 ml @ 50 mls/hr Q20H IV 11/29/19 11:30 11/30/19 16:59 DC 11/30/19 14:58 Potassium Chloride/Sodium Chloride 1,000 ml @ 50 mls/hr Q20H IV 11/29/19 11:00 11/29/19 11:17 DC Propofol 1000 mg/ IV Miscellaneous Supplies 100 ml @ 4.8 mls/hr [id number] IV 11/29/19 17:18 11/29/19 18:08 DC Quetiapine Fumarate (SEROquel) 25 mg QAM PO 11/25/19 09:00 Quetiapine Fumarate (SEROquel) 50 mg QHS PO 11/24/19 22:15 Senna/Docusate Sodium (Senokot S) 1 tab QHS PO 11/24/19 22:15 Sertraline HCl (Zoloft) 50 mg QHS PO 11/24/19 22:15 Sodium Biphosphate/ Sodium Phosphate (Fleet Enema) 1 ENEMA DAILY PRN IN CONSTIPATION 11/24/19 22:15 Sodium Chloride 1,000 ml @ 15 mls/hr Q24H IV 11/25/19 15:25 11/26/19 09:51 DC 11/25/19 15:50 Sodium Chloride 1,000 ml @ 50 mls/hr Q20H IV 11/27/19 10:35 11/29/19 10:44 DC 11/29/19 02:35 Sodium Chloride 1,000 ml @ 150 mls/hr Q6H40M IV 11/24/19 21:50 11/27/19 09:31 DC 11/27/19 05:25 Triamcinolone Acetonide (Kenalog 0.1% Ointment) APPLY TO AFFECTED AREAS... BIDP PRN TOP dermititis 11/24/19 22:15 Valproate Sodium 250 mg/Dextrose 52.5 ml @ 52.5 mls/hr QHS IV 11/30/19 00:00 12/02/19 15:02 DC 12/01/19 21:32 Vancomycin HCl 750 mg/IV Miscellaneous Supplies 1 each/ Dextrose 275 ml @ 275 mls/hr Q12H IV 11/25/19 13:00 11/26/19 14:00 DC 11/26/19 12:50 Vancomycin HCl 750 mg/IV Miscellaneous Supplies 1 each/ Dextrose 275 ml @ 275 mls/hr Q8H IV 12/02/19 11:00 12/02/19 10:07 DC Vancomycin HCl 1000 mg/IV Miscellaneous Supplies 1 each/ Dextrose 270 ml @ 270 mls/hr Q12H IV 11/27/19 00:00 11/27/19 09:31 DC 11/27/19 00:32 Vancomycin HCl 1000 mg/IV Miscellaneous Supplies 1 each/ Dextrose 270 ml @ 270 mls/hr Q12H IV 11/30/19 01:00 12/01/19 01:23 DC 11/30/19 13:28 Vancomycin HCl 1000 mg/IV Miscellaneous Supplies 1 each/ Dextrose 270 ml @ 270 mls/hr Q8H IV 12/01/19 02:00 12/02/19 10:00 DC 12/02/19 02:51 Vitamin D (Vitamin D) 1,000 units QPM PO 11/24/19 22:15 Allergies Coded Allergies: Quinolones (Verified Allergy, Unknown, 11/24/19) hydrocodone (Verified Allergy, Unknown, 11/24/19) levofloxacin (Verified Allergy, Unknown, 11/24/19) oxycodone (Verified Allergy, Unknown, 11/24/19) Stephie Mendez MD Dec 03, 2019 01:50
[2019-12-03 02:00] VITALS: BP 105/55
[2019-12-03 02:02] LABS: HEMATOCRIT 25.8 % (36.0-47.0); HEMOGLOBIN 8.5 g/dl (12.0-15.5); MEAN CORPUSCULAR HEMOGLOBIN 30.9 pg (27.0-33.0); MEAN CORPUSCULAR HGB CONC 32.9 g/dl (32.0-36.5); MEAN CORPUSCULAR VOLUME 93.8 fl (80.0-96.0); RED BLOOD COUNT 2.75 10^6/uL (4.00-5.40); WHITE BLOOD COUNT 14.7 10^3/uL (4.0-10.0)
[2019-12-03 02:03] LABS: PLATELET COUNT, AUTOMATED 97 10^3/uL (150-450)
[2019-12-03] MEDS ORDERED: LR 1,000 ML IV SCH (02:15)
[2019-12-03 03:00] VITALS: BP 90/43
[2019-12-03] MEDS ORDERED: MORPHINE 2 MG/ML 1ML VIAL (J2270) As Ordered ONE (03:27)
[2019-12-03] MEDS ORDERED: ONDANSETRON 4MG/2ML VIAL IV PRN (03:30)
[2019-12-03] MEDS ORDERED: SCOPOLAMINE 1MG TRANSDERMAL PATCH TOP PRN (03:30)
[2019-12-03] MEDS: MORPHINE 2 MG/ML 1ML VIAL (J2270) IV PRN ×5 (07:47→22:17)
--- NOTE | 2019-12-03 08:43 | IPNPDOC ---
Text Note Date of Service The patient was seen on 12/03/19. NOTE Subjective: Patient is a 74 year old female with a PMHx of Alzheimer's / Vascular dementia, HTN, DLP, Anxiety, Osteoporosis, GERD (Gastritis / Duodenitis), Hx of Hemorrhoids / Diverticulosis, who presented to the ER after she had a chocking episode at [facility]. Heimlich maneuver was performed and patient developed hematemesis and was transferred. Patient was admitted to the hospitalist service and surgery was called on consultation. On 11/27-11/28 night patient was noted to have further hematemesis with clots, as well as dark colored stool. Discussed with 3 children on the morning of 11/28 about goals of care. Patient still remains DNR / DNI; family would like to proceed with EGD. Consulted Dr. Monroy for EGD that was performed on the afternoon of 11/28. On the night of 12/01-12/02 patient experienced another episode of dark colored stool and hematemesis. Patient was transferred to the ICU in massive transfusion protocol was initiated. Ultimately patient was made comfort measures. After discussion with family. Objective: Vitals (See below) General: Appears to be fidgeting, does not appear to be in any distress, family at bedside Assessment: Hemorrhagic shock Acute blood loss anemia - likely 2/2 bleeding duodenal ulcer (s/p Clip, Cauterization, Epinephrine) s/p Ventilator dependent respiratory failure s/p Acute Metabolic Encephalopathy; possibly 2/2 infectious etiology, possibly 2/2 Delirium on Dementia, s/p Leukocytosis - possibly 2/2 UTI, possibly 2/2 intra-abdominal infection Hypokalemia s/p Hypernatremia Choking episode - likely 2/2 worsening of her dementia Alzheimers / Vascular Dementia Chronic HTN Lichen sclerosis GI prophylaxis DVT prophylaxis Plan: - After discussion with family, patient has been made comfort measures only - Nonessential medications were discontinued - Medication for comfort along were initiated - Discussed with family at bedside at bedside, addressed all questions and concerns Disposition: - EMPLOYMENT ATTORNEY - DNR / DNI VS,Fishbone, I+O VS, Fishbone, I+O Laboratory Tests 12/02/19 08:54 12/02/19 20:34 12/02/19 20:35 12/03/19 01:55 Vital Signs Date Time Temp Pulse Resp B/P (MAP) Pulse Ox O2 Delivery O2 Flow Rate FiO2 12/03/19 07:57 97 18 100 Room Air 12/03/19 03:00 97.6 90/43 (59) 2.0 12/01/19 03:00 28 I&O- Last 24 Hours up to 6 AM 12/03/19 06:00 Intake Total 1892 ml Output Total 2185 ml Balance -293 ml MARLON DEGROOT MD Dec 03, 2019 08:43
[2019-12-03] MEDS: LORazepam 2 MG/ML VIAL IV PRN ×2 (10:35→15:14)
--- NOTE | 2019-12-04 10:18 | DS.PDOC ---
Discharge Summary General Date of Admission Nov 24, 2019 at 21:50 Date of Discharge 12/03/2019 Discharge Summary PROCEDURES PERFORMED DURING STAY: EGD on 11/[address] Monroy ADMITTING DIAGNOSES / DISCHARGE DIAGNOSES: Hemorrhagic shock Acute blood loss anemia - likely 2/2 bleeding duodenal ulcer (s/p Clip, Cauterization, Epinephrine) s/p Ventilator dependent respiratory failure s/p Acute Metabolic Encephalopathy; possibly 2/2 infectious etiology, possibly 2/2 Delirium on Dementia, s/p Leukocytosis - possibly 2/2 UTI, possibly 2/2 intra-abdominal infection Hypokalemia s/p Hypernatremia Choking episode - likely 2/2 worsening of her dementia Alzheimers / Vascular Dementia Chronic HTN Lichen sclerosis GI prophylaxis DVT prophylaxis COMPLICATIONS/CHIEF COMPLAINT: Vomiting blood HISTORY OF PRESENT ILLNESS / HOSPITAL COURSE: Patient is a 74 year old female with a PMHx of Alzheimer's / Vascular dementia, HTN, DLP, Anxiety, Osteoporosis, GERD (Gastritis / Duodenitis), Hx of Hemorrhoids / Diverticulosis, who presented to the ER after she had a chocking episode at [facility]. Heimlich maneuver was performed and patient developed hematemesis and was transferred. Patient was admitted to the hospitalist service and surgery was called on consultation. On 11/27-11/28 night patient was noted to have further hematemesis with clots, as well as dark colored stool. Discussed with 3 children on the morning of 11/28 about goals of care. Patient still remains DNR / DNI; family would like to proceed with EGD. Consulted Dr. Monroy for EGD that was performed on the afternoon of 11/28. On the night of 12/01-12/02 patient experienced another episode of dark colored stool and hematemesis. Patient was transferred to the ICU in massive transfusion protocol was initiated. Ultimately patient was made comfort measures after discussion with family. Nonessential medications were discontinued and medication for comfort along were initiated. Discussed with family at bedside at bedside, addressed all questions and concerns on the morning and afternoon of 12/03/2019. Patient ultimately on 12/02 at 23:20 with her family at the beside. DISCHARGE MEDICATIONS: Please see below. ALLERGIES: Please see below. DISPOSITION: Vital Signs/I&Os Vital Signs Date Time Temp Pulse Resp B/P (MAP) Pulse Ox O2 Delivery O2 Flow Rate FiO2 12/03/19 16:20 110 18 97 Room Air 12/03/19 03:00 97.6 90/43 (59) 2.0 12/01/19 03:00 28 Microbiology Microbiology 12/02/19 Respiratory Virus Panel (PCR) (KATHY) - Final, Complete 11/30/19 Blood Culture - Preliminary, Resulted No Growth after 72 hours. All specime... 11/30/19 Blood Culture - Preliminary, Resulted No Growth after 72 hours. All specime... 11/28/19 Stool Occult Blood (KATHY) - Final, Complete 11/25/19 Urine Culture - Final, Complete Escherichia Coli 11/25/19 Blood Culture - Final, Complete NO GROWTH AFTER 5 DAYS Discharge Medications Scheduled Aspirin (Aspirin EC) 81 Mg Tab, 81 MG PO QHS, (Reported) Cholecalciferol (Vitamin D3) (Vitamin D3) 25 Mcg Capsule, 1,000 UNITS PO QHS, (Reported) Clobetasol Propionate (Temovate) 15 Gm Oint...g., 1 DOSE TOP QHS, (Reported) APPLY TO VULVA Divalproex Sodium (Divalproex Sodium) 250 Mg Tablet.dr, 250 MG PO QHS, (Reported) Furosemide (Furosemide) 20 Mg Tablet, 20 MG PO QAM, (Reported) Memantine HCl (Namenda Xr) 28 Mg Cap, 28 CAP PO QHS, (Reported) Multivitamins (Thera M Plus Tablet) 1 Each Tablet, 1 TAB PO QHS, (Reported) Quetiapine Fumarate (Quetiapine Fumarate) 50 Mg Tab, 50 MG PO QHS, (Reported) Quetiapine Fumarate (Seroquel) 25 Mg Tablet, 25 MG PO QAM, (Reported) Sennosides/Docusate Sodium (Senna Plus Tablet) 1 Each Tablet, 1 TAB PO QHS, (Reported) Sertraline HCl (Sertraline HCl) 50 Mg Tab, 50 MG PO QHS, (Reported) Scheduled PRN Acetaminophen (Acetaminophen) 325 Mg Tablet, 650 MG PO Q4H PRN for PAIN / FEVER, (Reported) Bisacodyl (Dulcolax) 10 Mg Supp.rect, 10 MG TN DAILY PRN for CONSTIPATION, (Reported) Magnesium Hydroxide (Milk of Magnesia) 400 Mg/5 Ml Oral.susp, 30 ML PO DAILY PRN for CONSTIPATION, (Reported) Sodium Phosphate,[place]-Dibasic (Enema) 133 Ml Enema, 1 ANTONIO TN DAILY PRN for CONSTIPATION, (Reported) Triamcinolone Acet (Triamcinolone Acetonide 0.1% Oint) 15 Gm Oint...g., 1 DOSE TOP BID PRN for dermititis, (Reported) Allergies Coded Allergies: Quinolones (Verified Allergy, Unknown, 11/24/19) hydrocodone (Verified Allergy, Unknown, 11/24/19) levofloxacin (Verified Allergy, Unknown, 11/24/19) oxycodone (Verified Allergy, Unknown, 11/24/19) MARLON DEGROOT MD Dec 04, 2019 10:18
--- NOTE | 2019-12-08 14:45 | ECGEPIP ---
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
--- NOTE | 2019-12-13 11:30 | ECGEPIP ---
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
--- NOTE | 2019-12-19 09:16 | RO ---
DATE OF OPERATION: 11/29/2019 PREOPERATIVE DIAGNOSIS: Hypovolemia. POSTOPERATIVE DIAGNOSIS: Hypovolemia. PROCEDURE: Right subclavian central venous pressure (CVP) placement. PROCEDURE NOTE: The patient was seen in the intensive care unit intubated and mechanically ventilated, critically ill with insufficient venous access and hypovolemic. The skin overlying the right subclavian vein was prepped with ChloraPrep and draped in a sterile fashion. A 25 gauge needle was used to raise a skin wheal of 1% lidocaine. Thereafter, a 17 gauge introducer was needle was placed in through the skin and into the right subclavian vein. Free return of venous blood was obtained. A vascular set guidewire was advanced. A triple-lumen catheter placed over the guidewire to a distance of 17 cm. The catheter was sewn in place and a sterile dressing was applied. There were no apparent complications. A post-procedural chest x-ray is pending. [facility]
--- NOTE | 2019-12-20 12:45 | REP ---
PORTABLE CHEST X-RAY: 11/28/19 CLINICAL: Shortness of breath. COMPARISON: 11/24/19 FINDINGS: Mediastinum and cardiac silhouette normal. Lung aguirre clear. No consolidation, effusion, or pneumothorax. Skeletal structures intact. IMPRESSION: Normal portable chest x-ray . No acute cardiopulmonary process or focal consolidation. MTDD
--- NOTE | 2019-12-20 12:47 | REP ---
PORTABLE CHEST X-RAY: 12/01/19 CLINICAL: Endotracheal tube placement. COMPARISON: 11/30/19. FINDINGS: The endotracheal tube is not definitively identified. A nasogastric tube is noted coursing below the left hemidiaphragm. The mediastinum and cardiac silhouette are stable. The lung aguirre demonstrate increased intersitial margins and trace scattered atelectasis cannot be excluded. No focal consolidation, obvious effusion or pneumothorax. Current examination now demonstrates a presumed right subclavian catheter which extends into the right jugular vein and neck. IMPRESSION: 1. No endotracheal tube identified. 2. Increased intersitial markings with possible scattered atelectasis. No focal consolidation or obvious effusion. 3. Right subclavian catheter extends cranially into the right jugular and neck. MTDD
--- NOTE | 2019-12-20 12:47 | REP ---
PORTABLE CHEST X-RAY CLINICAL: Endotracheal tube placement. COMPARISON: 11/29/2019. FINDINGS: Evaluation of the endotracheal tube is limited by overlying devices and likely terminates greater than 3.5 cm above the juve. Nasogastric tube courses below the left hemidiaphragm. The cardiac silhouette is normal. The lung aguirre demonstrate linear fibroatelectatic changes at the right lower lung zone improved from prior examination. No further consolidation, obvious effusion, or pneumothorax appreciated. Skeletal structures are intact. IMPRESSION: * Lines and tubes as described above. * Decreased fibroatelectatic changes in the right lower lung zone. MTDD
== END 2019-12-03 23:20 | disposition expired | DRG 377 ==
LOC: M ED 19:58 → M ED INP 21:50 → ENRESERV 22:32 → M MS5PR 23:00 → M MSPAV 11-28 10:55 → M PCU 11-29 04:31 → M ICU 11-29 16:30 → M MS5PR 12-02 11:33 → M ICU 12-02 21:41 → M MS5PR 12-03 16:15
PROVIDERS: ADMIT Internal Medicine; ATTEND Neuromusculoskeletal Medicine & OMM
PROC: 30233N1 Transfusion of Nonautologous Red Blood Cells into Peripheral Vein, Percutaneous Approach (ICD-10-PCS; 2019-11-25)
PROC: 0W3P8ZZ Control Bleeding in Gastrointestinal Tract, Via Natural or Artificial Opening Endoscopic (ICD-10-PCS; 2019-11-29)
PROC: 30233K1 Transfusion of Nonautologous Frozen Plasma into Peripheral Vein, Percutaneous Approach (ICD-10-PCS; 2019-11-29)
PROC: 5A1935Z Respiratory Ventilation, Less than 24 Consecutive Hours (ICD-10-PCS; principal; 2019-11-29 14:00)
DX: K26.4 Chronic or unspecified duodenal ulcer with hemorrhage (principal); J96.00 Acute respiratory failure, unspecified whether with hypoxia or hypercapnia; G93.41 Metabolic encephalopathy; D62 Acute posthemorrhagic anemia; E87.0 Hyperosmolality and hypernatremia; E87.2 Acidosis; N39.0 Urinary tract infection, site not specified; F02.81 Dementia in other diseases classified elsewhere, unspecified severity, with behavioral disturbance; L90.0 Lichen sclerosus et atrophicus; R57.8 Other shock; E87.6 Hypokalemia; D72.829 Elevated white blood cell count, unspecified; I10 Essential (primary) hypertension; G30.9 Alzheimer's disease, unspecified; Z79.899 Other long term (current) drug therapy; Z79.82 Long term (current) use of aspirin; Z88.5 Allergy status to narcotic agent; Z88.8 Allergy status to other drugs, medicaments and biological substances; E78.5 Hyperlipidemia, unspecified; Z96.651 Presence of right artificial knee joint; F41.9 Anxiety disorder, unspecified; K21.9 Gastro-esophageal reflux disease without esophagitis; K64.8 Other hemorrhoids; K57.30 Diverticulosis of large intestine without perforation or abscess without bleeding; E55.9 Vitamin D deficiency, unspecified; E53.8 Deficiency of other specified B group vitamins; Z87.891 Personal history of nicotine dependence; B96.29 Other Escherichia coli [E. coli] as the cause of diseases classified elsewhere; M81.0 Age-related osteoporosis without current pathological fracture; Z51.5 Encounter for palliative care